=== PATIENT | male | born 1990 | race African-American/Black ===

== ENCOUNTER 2020-11-27 14:04 | Emergency (ER) | payer SELFPAY ==
[2020-11-27 14:08] VITALS: BP 148/90; PULSE 116; RESP 18; TEMP 36.7; O2SAT 98; BMI 21.9
--- NOTE | 2020-11-27 14:20 | W.ED.PSYCH ---
HPI - Psych General: Chief Complaint: Psychiatric Symptoms Stated Complaint: PSYCH EVAL Time Seen by Provider: 11/27/20 14:04 History of Present Illness: HPI Narrative: 30-year-old male presents to the emergency room in the custody of the [facility]. They had served 96-hour hold warrant on him. Affidavits were reviewed. Patient is very talkative he talks a lot about restorationism perspectives. He feels he has special special enlightenment from God. He went on to talk about it was difficult to get his girlfriend understand because she is left-handed left-handed people do not learn new things well. He denies a suicidal or homicidal ideation he makes no threats against anyone. There are allegations in his 96-hour hold that he believes white people are from the devil and are mixed with aliens and swine. He believes he must burn down the world because he is God he believes he is a mortal because he is God cannot be killed or harmed. He has paranoid delusions according to the affidavit about his own being hacked by the government because he is important. He does not voice any of these things to me. He denies any previous mental health issues he denies any prescription medications or major medical history in the past. He does make the comment that his mother was bipolar. He does admit to regular marijuana use. Onset (ago): day(s) Duration: constant Relieving factors: none Exacerbating factors: none Context: recent drug abuse Associated symptoms: Reports delusions and racing thoughts; Deny auditory hallucinations, visual hallucinations, depression, homicidal ideation or suicidal ideation Treatments prior to arrival: placed on mental health hold Review of Systems Const: Denies: fever(s), chills, body aches, change in appetite, fatigue or malaise ENMT: Denies: throat pain, ear or mastoid pain, nasal discharge or nasal congestion Card: Denies: chest pain, edema, dyspnea on exertion or orthopnea Resp: Denies: dyspnea, productive cough or non-productive cough GI: Denies: abdominal pain, nausea, vomiting, hematemesis, coffee ground emesis, diarrhea, constipation, bloating, hematochezia or melena : Denies: flank pain, dysuria, urinary frequency or urinary urgency Skin/Breast: Denies: rash or pruritus Psych: Denies: depression, visual hallucinations, auditory hallucinations, suicidal ideation or homicidal ideation Physical Exam Const: COMMON NORMALS: no acute distress GENERAL APPEARANCE: cooperative and comfortable ORIENTATION/CONSCIOUSNESS: Yes oriented to person, Yes oriented to place and Yes oriented to time HENMT: COMMON NORMALS: normocephalic, atraumatic and hearing grossly normal bilaterally HEAD & SCALP: normocephalic and atraumatic Neck/C-Spine: COMMON NORMALS: no JVD Resp: COMMON NORMALS: normal respiratory effort, No retractions, No use of accessory muscles and clear to auscultation bilaterally AUSCULTATION: clear to auscultation bilaterally Cardio: COMMON NORMALS: no JVD, regular rate, regular rhythm and No murmurs present (Cardio) RATE: regular rate RHYTHM: regular rhythm GI: COMMON NORMALS: Soft to palpation and No hepatosplenomegaly present AUSCULTATION: Yes normoactive bowel sounds PALPATION: Yes Soft to palpation, No Tenderness to palpation present (GI), No Guarding due to palpation present (GI) and Yes No hepatosplenomegaly present Extremity: COMMON NORMALS: normal to inspection, capillary refill normal, no clubbing, cyanosis or edema, no calf tenderness and no pedal edema Neuro: SENSORIUM/ORIENTATION: Yes oriented to person, Yes oriented to place and Yes oriented to time Psych: THOUGHT CONTENT: Yes delusions Skin: COMMON NORMALS: no rashes or lesions noted GENERAL SKIN EXAM: no rashes or lesions noted MDM - Psych MDM Narrative: Medical decision making narrative: Dr. Morrison consulted. Dr. Morrison is seen the patient and does not feel that he necessarily needs to be admitted for acute psychiatric care. He would benefit from outpatient therapy and even some potential prescription medications but he is not an immediate harm to himself or someone else. We both agree he can be discharged and does not require a forced inpatient psychiatric stay. I discussed this with the patient he is agreeable to going to outpatient to [facility] in fact he would like to do it. Will have truck rental clerk make arrangements for him. Discharge Plan Discharge Patient Disposition: Home Clinical Impression: Hypomania, Partner relational problem Condition: Stable Prescriptions: No Action No Known Home Medications RF: 0 Discharge Orders: Discharge ED (Routine); Ordered 11/27/20 Ordered By: Gerson Briceno Discharge Diet: Usual diet Patient Instructions: Opioid Safety Activity Restrictions/Additional Instructions: Case manabement with an aapointment with C. Coding Level of Care Code ED Concrete Mixer Operator Helper for Kayley Fwelvin Exam Comprehensive
[2020-11-27 16:12] VITALS: RESP 18; TEMP 36.7; O2SAT 98
--- NOTE | 2020-11-28 08:59 | DCPLANNER ---
campaign marketing manager had message to speak with patient about services offered at [facility]. campaign marketing manager called [phone], unable to speak with patient or leave a voicemail for patient due to phone no longer being in service. campaign marketing manager also called phone number [phone] unable to speak with anyone or leave a voicemail on this phone.
== END 2020-11-27 16:13 | disposition home or self-care (01) ==
PROVIDERS: Emergency Provider Family Medicine
DX: F30.8 Other manic episodes (principal); Z63.0 Problems in relationship with spouse or partner
CPT/HCPCS: 99284

== ENCOUNTER 2020-12-10 17:05 | Inpatient (IN) | payer SELFPAY ==
[2020-12-10 17:06] VITALS: BP 137/81; PULSE 89; RESP 18; TEMP 36.8; O2SAT 99; BMI 23.1
[2020-12-10 17:33] LABS: Basophils # 0.1 10^3/uL (0.0-0.1); Basophils % 0.6 %; Eosinophils # 0.1 10^3/uL (0.0-0.8); Eosinophils % 1.1 %; Hematocrit 42.2 % (42.0-52.0); Lymphocytes # 2.8 10^3/uL (0.8-4.8); Lymphocytes % 33.2 %; Mean Corpuscular HGB Conc 33.2 g/dL (30.0-36.0); Mean Corpuscular Hemoglobin 29.6 pg (28.0-34.0); Mean Corpuscular Volume 89.2 fL (80-94); Mean Platelet Volume 10.4 fL (7.4-10.4); Monocytes # 0.9 10^3/uL (0.2-0.9); Monocytes % 11.2 %; Neutrophils # 4.48 10^3/uL (1.8-7.7); Neutrophils % 53.8 %; Nucleated Red Blood Cells % 0 %; Platelet Count 209 10^3/cmm (130-400); Red Blood Count 4.73 10^6/uL (4.1-5.3); Red Cell Distribution Width 11.9 % (12.1-15.1); White Blood Count 8.3 10^3/uL (4.0-10.0)
[2020-12-10 17:51] LABS: Alanine Aminotransferase 20 U/L (0-41); Albumin Level 4.5 g/dL (3.5-5.2); Alkaline Phosphatase 59 IU/L (40-130); Anion Gap 13.1 (5-19); Aspartate Amino Transferase 19 U/L (0-40); Blood Urea Nitrogen 24 mg/dL (6-20); Calcium 9.1 mg/dL (8.5-10.5); Carbon Dioxide 28 mmol/L (22-29); Chloride 103 mmol/L (98-107); Globulin 2.3 g/dL (1.3-4.6); Glomerular Filtration Rate 106.2 mL/min (90-130); Glucose 89 mg/dL (65-115); Osmolality Calculated 294 mOsm/kg (285-295); Potassium 4.1 mmol/L (3.5-5.1); Sodium 140 mmol/L (136-145); Total Bilirubin 0.3 mg/dL (0.15-1.2); Total Protein 6.8 g/dL (6.6-8.7)
[2020-12-10 17:57] LABS: Acetaminophen < 5.0 ug/mL (10-30); Salicylate < 0.3 mg/dL (3-10)
--- NOTE | 2020-12-10 18:05 | W.ED.ANXIETY ---
HPI - Anxiety General: Chief Complaint: Anxiety Stated Complaint: PSYCH EVAL Time Seen by Provider: 12/10/20 17:12 History of Present Illness: Associated symptoms: Reports chest pain and malaise; Deny chills, fever(s), headache(s), nausea or vomiting Review of Systems Const: Reports: malaise; Denies: fever(s) or chills Card: Reports: chest pain Resp: Reports: dyspnea GI: Denies: abdominal pain, nausea or vomiting : Denies: flank pain Skin/Breast: Denies: rash Neuro: Denies: headache(s) PFSH ED PFSH: Family History Mother Schizo-affective schizophrenia, chronic condition Bipolar 1 disorder with moderate newton Social History Smoking and tobacco status: current every day smoker cigarettes Packs smoked per day: 1 Substance/Drug Use: current Substance/Drug use frequency: daily Substance/Drug use type: Marijuana Desire information about substance/drug rehabilitation?: No Counseling given: Yes Adopted: No Caregiver/support person: No Lives independently: Yes Marital status: Single Number of children: 3 (2 boys/1girl) Highest education level completed: High School Graduate service: No Current occupational status: unemployed Pets and animals: No History of recent travel: No Sexually active: Yes Current gender identity: Male Juana/Pentecostalism: Unknown Special juana needs: No Agree to transfusion: Yes Financial difficulty paying for basics: Very Hard Additional social history: 2 Penitentiary stays, out in 2013, just got out a second time. Physical Exam Const: COMMON NORMALS: no acute distress and alert GENERAL APPEARANCE: comfortable ORIENTATION/CONSCIOUSNESS: Yes oriented to person Resp: COMMON NORMALS: normal respiratory effort and clear to auscultation bilaterally AUSCULTATION: clear to auscultation bilaterally Cardio: COMMON NORMALS: regular rate and regular rhythm RATE: regular rate RHYTHM: regular rhythm GI: COMMON NORMALS: Soft to palpation and non-tender PALPATION: Yes Soft to palpation Extremity: COMMON NORMALS: normal to inspection and full ROM Neuro: SENSORIUM/ORIENTATION: Yes alert and Yes oriented to person Psych: COMMON NORMALS: mental status grossly normal and normal affect Skin: COMMON NORMALS: no rashes or lesions noted GENERAL SKIN EXAM: no rashes or lesions noted Course Vital Signs: Vital signs: Vital Signs Temperature 97.9 F 12/11/20 06:00 Pulse Rate 64 12/11/20 06:00 Respiratory Rate 18 12/11/20 06:00 Blood Pressure 139/70 12/11/20 06:00 Pulse Oximetry 100 12/11/20 06:00 MDM - Anxiety MDM Narrative: Medical decision making narrative: Patient was evaluated by Dr. Morrison on telemedicine. He felt that patient need to be admitted due to his manic state. Patient to be admitted to [facility] in stable condition. Medical Records: Attestation: I reviewed the patient's medical records. Lab Data: Labs: Lab Results 12/10/20 12/10/20 12/10/20 Range/Units 17:19 17:19 17:27 WBC 8.3 (4.0-10.0) 10^3/ uL RBC 4.73 (4.1-5.3) 10^6/u L Hgb 14.0 (11.7-16.6) g/dL Hct 42.2 (42.0-52.0) % MCV 89.2 (80-94) fL MCH 29.6 (28.0-34.0) pg MCHC 33.2 (30.0-36.0) g/dL RDW 11.9 L (12.1-15.1) % Plt Count 209 (130-400) 10^3/c mm MPV 10.4 (7.4-10.4) fL Neut % (Auto) 53.8 % Lymph % (Auto) 33.2 % [place] % (Auto) 11.2 % Eos % (Auto) 1.1 % Baso % (Auto) 0.6 % Neut # (Auto) 4.48 (1.8-7.7) 10^3/u L Lymph # (Auto) 2.8 (0.8-4.8) 10^3/u L [place] # (Auto) 0.9 (0.2-0.9) 10^3/u L Eos # (Auto) 0.1 (0.0-0.8) 10^3/u L Baso # (Auto) 0.1 (0.0-0.1) 10^3/u L Nucleated RBC % (a uto) 0 % Nucleated RBCs # 0.0 /100WBC Sodium 140 (136-145) mmol/L Potassium 4.1 (3.5-5.1) mmol/L Chloride 103 (98-107) mmol/L Carbon Dioxide 28 (22-29) mmol/L Anion Gap 13.1 (5-19) BUN 24 H (6-20) mg/dL Creatinine 1.0 (0.7-1.2) mg/dL GFR Calculation 106.2 (90-130) mL/min Glucose 89 (65-115) mg/dL Calculated Osmolal ity 294 (285-295) mOsm/k g Calcium 9.1 (8.5-10.5) mg/dL Total Bilirubin 0.3 (0.15-1.2) mg/dL AST 19 (0-40) U/L ALT 20 (0-41) U/L Alkaline Phosphata se 59 (40-130) IU/L Total Protein 6.8 (6.6-8.7) g/dL Albumin 4.5 (3.5-5.2) g/dL Globulin 2.3 (1.3-4.6) g/dL Urine Color Yellow (Yellow) Urine Appearance Clear (CLEAR) Urine pH 6.5 (5-7) Ur Specific Gravit y 1.020 (1.005-1.030) Urine Protein Neg (Negative) Urine Glucose (UA) Norm (Normal) Urine Ketones Negative (Negative) Urine Blood Neg (Negative) Urine Nitrate Negative (Negative) Urine Bilirubin 1+ H (Negative) Urine Urobilinogen Norm (Negative) mg/dL Ur Leukocyte Tati ase Negative (Negative) Salicylates < 0.3 L (3-10) mg/dL Urine Opiates Scre en (Negative) ng/mL Acetaminophen < 5.0 L (10-30) ug/mL Ur Barbiturates Sc reen (Negative) ng/mL Ur Phencyclidine S crn (Negative) ng/mL Ur Amphetamines Sc reen (Negative) ng/mL U Benzodiazepines Scrn (Negative) ng/mL Urine Cocaine Scre en (Negative) ng/mL U Marijuana (THC) Screen (Negative) ng/mL 12/10/20 Range/Units 17:27 WBC (4.0-10.0) 10^3/ uL RBC (4.1-5.3) 10^6/u L Hgb (11.7-16.6) g/dL Hct (42.0-52.0) % MCV (80-94) fL MCH (28.0-34.0) pg MCHC (30.0-36.0) g/dL RDW (12.1-15.1) % Plt Count (130-400) 10^3/c mm MPV (7.4-10.4) fL Neut % (Auto) % Lymph % (Auto) % [place] % (Auto) % Eos % (Auto) % Baso % (Auto) % Neut # (Auto) (1.8-7.7) 10^3/u L Lymph # (Auto) (0.8-4.8) 10^3/u L [place] # (Auto) (0.2-0.9) 10^3/u L Eos # (Auto) (0.0-0.8) 10^3/u L Baso # (Auto) (0.0-0.1) 10^3/u L Nucleated RBC % (a uto) % Nucleated RBCs # /100WBC Sodium (136-145) mmol/L Potassium (3.5-5.1) mmol/L Chloride (98-107) mmol/L Carbon Dioxide (22-29) mmol/L Anion Gap (5-19) BUN (6-20) mg/dL Creatinine (0.7-1.2) mg/dL GFR Calculation (90-130) mL/min Glucose (65-115) mg/dL Calculated Osmolal ity (285-295) mOsm/k g Calcium (8.5-10.5) mg/dL Total Bilirubin (0.15-1.2) mg/dL AST (0-40) U/L ALT (0-41) U/L Alkaline Phosphata se (40-130) IU/L Total Protein (6.6-8.7) g/dL Albumin (3.5-5.2) g/dL Globulin (1.3-4.6) g/dL Urine Color (Yellow) Urine Appearance (CLEAR) Urine pH (5-7) Ur Specific Gravit y (1.005-1.030) Urine Protein (Negative) Urine Glucose (UA) (Normal) Urine Ketones (Negative) Urine Blood (Negative) Urine Nitrate (Negative) Urine Bilirubin (Negative) Urine Urobilinogen (Negative) mg/dL Ur Leukocyte Tati ase (Negative) Salicylates (3-10) mg/dL Urine Opiates Scre en Negative (Negative) ng/mL Acetaminophen (10-30) ug/mL Ur Barbiturates Sc reen Negative (Negative) ng/mL Ur Phencyclidine S crn Negative (Negative) ng/mL Ur Amphetamines Sc reen Negative (Negative) ng/mL U Benzodiazepines Scrn Negative (Negative) ng/mL Urine Cocaine Scre en Negative (Negative) ng/mL U Marijuana (THC) Screen Positive H (Negative) ng/mL Discharge Plan Discharge Patient Disposition: Admitted As Inpatient Admit Provider: No Marlow Clinical Impression: Manic behavior Condition: Stable Discharge Diet: Usual diet Coding Level of Care Code ED Rehabilitation Nurse for Kayley Dent Exam Detailed
[2020-12-10 18:12] LABS: Add Urine Microscopic? NO; Charge for UA Resulting for Rev
[2020-12-10 18:17] LABS: Urine Appearance Clear (CLEAR); Urine Color Yellow (Yellow); pH Urine 6.5 (5-7)
[2020-12-10 18:18] LABS: Bilirubin Urine 1+ (Negative); Blood Urine Neg (Negative); Glucose Urine UA Norm (Normal); Ketones Urine Negative (Negative); Leukocyte Esterase Urine Negative (Negative); Nitrate Urine Negative (Negative); Protein Urine Neg (Negative); Urobilinogen Urine Norm (Negative)
[2020-12-10 18:27] LABS: Amphetamines Screen Urine Negative (Negative); Barbiturates Screen Urine Negative (Negative); Benzodiazepines Screen Urine Negative (Negative); Cocaine Screen Urine Negative (Negative); Opiate Screen Urine Negative (Negative); PCP Screen Urine Negative (Negative); THC Screen Urine Positive (Negative)
[2020-12-10] MEDS: OLANZapine 5 mg TABLET PO (22:57)
[2020-12-10 23:14] VITALS: BP 115/72; PULSE 78; RESP 19; TEMP 36.9; O2SAT 98
[2020-12-10 23:29] VITALS: BP 132/80; PULSE 86; RESP 19; TEMP 36.9; O2SAT 100
[2020-12-10 23:30] VITALS: BP 132/80; PULSE 86; RESP 19; O2SAT 100
[2020-12-11 00:35] VITALS: BP 132/80; PULSE 86; RESP 19; TEMP 36.9; O2SAT 100
--- NOTE | 2020-12-11 01:00 | PC.NURSE ---
PM ASSESSMENT V/S ARE WNL, HEART AND LUNG SOUNDS ARE WNL, ON ADMISSION TO NPU PT IS CALM, COOPERATIVE, AND SINGING TO THE MANAGER OF SCHOOL. PT DENIES SI/HI AT THIS TIME, DENIES PAIN, DENIES AH/VH. PT ADMITTED FROM ER WITH DX: MANIC BEHAVIOR, HERE ON A 96. PT WAS IN COURT TODAY (12/11/19), PT FOUND IN JUDGES CHAIR, NAKED, FEET UP ON THE DESK, MASTURBATING. HE IS EXPERIENCING GRANDIOSE DELUSIONS, BELIEVES HE IS A PROFIT FROM GOD, WHEN HE WAS ASKED TO COME DOWN AND GET DRESSED, THE PT BECAME SUICIDAL WITH A PLAN TO BY FEED MILL SUPERVISOR. PLACED IN POLICE CUSTODY FOR CONTEMPT OF COURT. HX: LAST IN NPU, UNDER DR. SINAI HOYOS CARE IN 07/2019, 96?D FOR HI, DX OF MAJOR DEPRESSIVE DISORDER, SPOUSAL ISSUES, MANIC. PT WAS USING STIMULANTS AND THC AT THAT TIME.PT REPORTS BEING IN HALFWAY TWICE, DID NOT EXPOUND ON CIRCUMSTANCES. SOCIAL HX: PT IS THE FATHER OF 2 BOYS AND ONE GIRL, THERE IS ISSUES WITHIN THE FAMILY DYNAMICS REGARDING HIS VISITATION. PT STATES ?I DO NOT HAVE ANYONE THAT I COUNT PART OF MY SUPPORT SYSTEM.? REPORTS HIS MOTHER IS SCHIZOPHRENIC/BIPOLAR.
[2020-12-11 06:00] VITALS: BP 139/70; PULSE 64; RESP 18; TEMP 36.6; O2SAT 100
[2020-12-11] MEDS: OLANZapine 5 mg ODT PO ×2 (10:31→21:24)
--- NOTE | 2020-12-11 10:31 | PM.NHP ---
Providers/Chief Complaint Admitting Physician: No Marlow DO Chief Complaint: PSYCH EVAL HPI NPU History of Present Illness Tad Varela JR is a 30 year old male with an unclear and confusing past mental health history and extensive legal history presented to the emergency department by law enforcement on 96-hour hold. Patient appeared to initially be appropriate upon presentation to the emergency room but had evidently been acting erratic and bizarrely while in court yesterday and had apparently stripped down and was not wearing any clothes while sitting in the judges chair. Patient had previously been evaluated in the emergency department 2 weeks prior and was hypomanic and was discharged with recommendation for outpatient care. Patient evaluated by telepsych and deemed to be much more manic with concerns about bizarre behavior and need for ongoing care acutely to include medication stabilization. Patient currently endorsing grandiose delusions with scientology theme, states that he is also hearing voices but is not able to make them out and is upset by them. Patient is difficult interview because he becomes labile with regards to mood and affect and begins to cry during interview and is unable to complete the interview. Patient does mention that he had been smoking marijuana and that he has not been taking medication for several weeks and that he had previously been in rehab 2 months prior. He currently denies any suicidal ideation or thoughts about self-harm. Review of Systems General: Reports: 10 or more systems reviewed and unremarkable except in HPI and below Meds NPU Home Medications Medication Instructions Recorded Confirmed Last Taken Type No Known Home Medications 11/27/20 12/10/20 Unknown History Allergies Allergy/AdvReac Type Severity Reaction Status Date / Time No Known Allergies Allergy Verified 12/10/20 23:36 PFSH NPU PFSH: Family History Mother Schizo-affective schizophrenia, chronic condition Bipolar 1 disorder with moderate newton Social History Smoking and tobacco status: current every day smoker cigarettes Packs smoked per day: 1 Substance/Drug Use: current Substance/Drug use frequency: daily Substance/Drug use type: Marijuana Desire information about substance/drug rehabilitation?: No Counseling given: Yes Adopted: No Caregiver/support person: No Lives independently: Yes Marital status: Single Number of children: 3 (2 boys/1girl) Highest education level completed: High School Graduate service: No Current occupational status: unemployed Pets and animals: No History of recent travel: No Sexually active: Yes Current gender identity: Male Juana/Protestant: Unknown Special juana needs: No Agree to transfusion: Yes Financial difficulty paying for basics: Very Hard Additional social history: 2 Senior Living stays, out in 2013, just got out a second time. Other Psychiatric History: Other Psychiatric History: Unable to obtain at this time, states that he has seen a mental health provider in the past outside of the hospital but it is unclear if he had been managed with medications or not States he has been previously hospitalized for psychiatric reasons but does not recall last encounter Denies any history of suicide attempt or self-harm behavior Mental Status Exam MSE Comments: Appears stated age, long dreaded hair, appropriately groomed and dressed, calm, cooperative, interactive, good eye contact Psychomotor activity is neither increased nor decreased, no agitation Speech is slightly pressured, normal volume, spontaneous, fair articulation I am okay, just anxious, somewhat labile, tearful during interview Alert and oriented to person, place, time Memory and concentration are fair at best per interview Intellectual functioning appears to be average based on vocabulary, interview Thought process, somewhat disjointed, linear at times but easily distractible requiring redirection Thought content, scientology themed delusions and grandiose, does not appear to be attending to any internal stimuli, no suicidal or homicidal ideation Insight and judgment appear to be fair Vitals/I&O/Wt Last Vital Signs Temp 97.9 F 12/11/20 06:00 Pulse 64 12/11/20 06:00 Resp 18 12/11/20 06:00 BP 139/70 12/11/20 06:00 Pulse Ox 100 12/11/20 06:00 Weight last 48 hrs Weight 95.254 kg Data NPU : 12/10/20 17:19 12/10/20 17:19 A&P Assessment and plan (1) Manic behavior: Status: Acute (2) Cannabis abuse: Status: Acute Additional A&P Information Patient with unclear past psychiatric history recently presenting to the emergency department with hypomanic behavior and currently manic reporting auditory hallucinations, grandiose and scientology theme delusions with ongoing legal issues and ongoing cannabis use off of medication. Patient would benefit from observation, restarting medication for medication stabilization and coordination for safe discharge to outpatient medication management and substance counseling/treatment. INVOLUNTARY ADMIT to inpatient psychiatry START Zyprexa Zydis 5 mg twice daily targeting psychotic symptoms, mood Encouraged patient to participate in unit activities to include group sessions, unit milieu Coordinate with social scientist for post discharge care Involuntary Hold Information 96 Hour Hold: 96 Hour Involuntary Admission: Yes 96 Hour Hold Ending Date: 12/14/20 96 Hour Hold Ending Time: 17:05 Attestations NPU Medical Necessity Statement*: Requires psychiatric hospitalization for observation, medication stabilization and coordination for safe discharge Anticipate hospital stay to exceed 2 midnights Time Spent in Patient Care: Greater than 35 minutes (>than 50% of time spent in counselling and/or direct pt care on unit). Coding Level of Care Code Acute Emergency Preparedness Coordinator for Kayley Dent Diagnoses Manic behavior F30.10 Cannabis abuse F12.10
[2020-12-11 14:00] VITALS: BP 104/65; PULSE 72; RESP 18; TEMP 36.2; O2SAT 96
[2020-12-11] MEDS: nicotine 2 mg Gum BUCCAL (18:51)
[2020-12-11 22:00] VITALS: BP 114/64; PULSE 58; RESP 18; TEMP 37.1; O2SAT 98
[2020-12-12 06:00] VITALS: BP 131/74; PULSE 101; RESP 18; TEMP 36.8; O2SAT 98
[2020-12-12] MEDS: nicotine 21 mg Patch 1 PATCH TRANSDERMA (07:06)
[2020-12-12] MEDS: OLANZapine 5 mg ODT PO ×2 (08:56→11:22)
--- NOTE | 2020-12-12 10:00 | PC.NURSE ---
Patient education Earlier this morning patient was noted standing in doorway of a female patient room. Educated patient that this is inappropriate and that he needed to respect privacy, and stay out of other patient rooms. This patient apologized and verbalized understanding.
--- NOTE | 2020-12-12 11:01 | PC.NURSE ---
Pt in other room This nurse was going to same female patient room and noticed the door was closed, immediately opened patient door and this patient was standing in said female patient's room. Both patients fully clothed, this nurse firmly tells male patient to exit and again that this is inappropriate behavior. Patient states I just need to get out of here so I can make some love . Repeated to patient that this is unacceptable and to go to his own room.
[2020-12-12] MEDS: OLANZapine 5 mg ODT 10 MG PO ×2 (11:23→19:33)
--- NOTE | 2020-12-12 11:51 | P.PN_ITS ---
Subjective NPU Subjective: Interval history: Patient with worsening delusions over the past day, states that he thinks he was made in [place], in a test tube. Continues to have episcopal themed delusions and has been escalating making physical threats towards others requiring as needed medication. Denies any interval depressed symptoms, denies any suicidal ideation States that he slept well last night Reports feeling somewhat restless and full of energy, demanding to leave stating that he just needs to go to his sister's in [place] Reports being compliant with his medication and denies any medication side effects Mental Status Exam MSE Comments: Tall, waving his arms while talking, appropriately groomed and dressed, mostly calm but occasionally gets emotional, good eye contact Psychomotor activity, occasionally restless, occasional verbal agitation but no physical agitation Speech is somewhat faster than normal rate but not pressured, spontaneous, clear articulation I feel great, expansive, elevated Alert and oriented to person, place, time Memory and concentration are fair at best, patient is highly distractible Thought process, circumstantial, frequently requires redirection, loose associations Thought content, ongoing delusions, does not appear to be attending to any internal stimuli, no suicidal ideation, patient had made threats towards this interviewer but was not voicing any current intent or plan Insight and judgment are limited Vitals/I&O/Wt Last Vital Signs Temp 98.2 F 12/12/20 06:00 Pulse 101 H 12/12/20 06:00 Resp 18 12/12/20 06:00 BP 131/74 12/12/20 06:00 Pulse Ox 98 12/12/20 06:00 Weight last 48 hrs Weight 95.254 kg Data NPU : 12/10/20 17:19 12/10/20 17:19 A&P Assessment and plan (1) Manic behavior: Status: Acute (2) Cannabis abuse: Status: Acute Additional A&P Information Ongoing manic behavior, episcopal delusions, verbal agitation, occasionally making threats with no active intent or plan INCREASE to Zyprexa Zydis 10 mg twice daily Continue to encourage behavioral redirection Involuntary Hold Information 96 Hour Hold: 96 Hour Involuntary Admission: Yes 96 Hour Hold Ending Date: 12/14/20 96 Hour Hold Ending Time: 17:05 Attestations NPU Medical Necessity Statement*: Requires psychiatric hospitalization for medication stabilization, coordination for safe discharge Coding Level of Care Code Acute X Ray Developing Machine Operator for Kayley Dent Diagnoses Manic behavior F30.10 Cannabis abuse F12.10
[2020-12-12] MEDS: LORazepam 2 mg/mL INJ 1 mL IM (11:57)
[2020-12-12] MEDS: diphenhydrAMINE 50 mg/mL SDV 1mL IM (11:58)
[2020-12-12] MEDS: haloperidol inj 5 mg/mL INJ 1 mL 10 MG IM (11:59)
--- NOTE | 2020-12-12 12:06 | PC.NURSE ---
PRN Medications Patient on phone requesting family to bring in all of their guns for him, requesting nurse staff to get him paperwork so he could no longer be a [place] Citizen, and we could send him to [place]. Patient making verbal threats to staff saying he would take us all out . Patient is very hyper-spiritism and states he cannot trust any staff members. He tells staff he has God in him and is very strong, and that he has gotten violent before and will do it again. Per Dr. Marlow, Haldol 10mg IM, Ativan 2mg IM, and Benadryl 50mg IM given. Patient was cooperative and sat on bed for medications to be given.
[2020-12-12 14:00] VITALS: BP 106/69; PULSE 109; RESP 18; TEMP 36.8; O2SAT 99
[2020-12-12 20:10] VITALS: BP 122/69; PULSE 103; RESP 17; TEMP 36.8; O2SAT 98
[2020-12-13 06:00] VITALS: BP 124/82; PULSE 73; RESP 18; TEMP 37.3; O2SAT 100
[2020-12-13] MEDS: OLANZapine 5 mg ODT PO (08:20)
[2020-12-13] MEDS: OLANZapine 5 mg ODT 10 MG PO ×2 (08:33→20:00)
[2020-12-13 14:00] VITALS: BP 138/73; PULSE 109; RESP 20; TEMP 37.4; O2SAT 99
--- NOTE | 2020-12-13 16:03 | P.PN_ITS ---
Subjective NPU Subjective: Interval history: Tad presented today reporting that he feels significantly better and like the medication helps him stay more calm. We discussed the fact that he seemed very manic when he was seen last by this video game script writer and of the medication clearly seems to help him though he did still make some delusional or conspiratory statements. We discussed the possibility of discharge tomorrow prior to the ending of his 96-hour hold if he continues to show improvement. He reports that is eating and sleeping well. Mental Status Exam MSE Comments: This is a tall, well-nourished well-developed -Malaysian male with hospital scrubs on and adequate grooming and eye contact. No abnormal movements. Cooperative with exam in no acute distress. Speech was normal rate and volume. Mood described as a lot better, affect congruent. Thought process organized. Thought content: Patient denied suicidal or homicidal ideation, there are no delusions reported with some occasional delusional content noted, he denied any auditory or visual hallucinations. Attention and concentration were intact and memory appeared reliable but none were formally tested. He is alert and oriented x3. Insight and judgment are improving and impulse control appeared fair. Vitals/I&O/Wt Last Vital Signs Temp 98.1 F 12/13/20 21:23 Pulse 76 12/13/20 21:23 Resp 18 12/13/20 21:23 BP 162/79 12/13/20 21:23 Pulse Ox 98 12/13/20 21:23 Data NPU : 12/10/20 17:19 12/10/20 17:19 A&P Assessment and plan (1) Moderate bipolar I disorder with newton as current episode: Status: Acute (2) Cannabis abuse: Status: Acute Additional A&P Information This is a 30-year-old -Malaysian male with a history of addiction and mental health difficulties who presented to the hospital on a 96-hour hold with newton who endorsed an openness to a trial of medication. 1. Continue current medication. 2. Continue every 15 minute checks for safety. 3. Encourage individual, group and milieu therapies. 4. We will consider discharge tomorrow. Involuntary Hold Information 96 Hour Hold: 96 Hour Involuntary Admission: Yes 96 Hour Hold Ending Date: 12/14/20 96 Hour Hold Ending Time: 17:05 Attestations NPU Medical Necessity Statement*: Inpatient hospitalization is medically necessary and the clinically appropriate intervention at this time. We will monitor medications and make changes as indicated. Likely length of stay 1-3 days. Coding Level of Care Code Acute Seed Tester for g Fwd Diagnoses Moderate bipolar I disorder with newton as current episode F31.12 Cannabis abuse F12.10
[2020-12-13 21:23] VITALS: BP 162/79; PULSE 76; RESP 18; TEMP 36.7; O2SAT 98
[2020-12-14 06:00] VITALS: BP 120/71; PULSE 88; RESP 18; TEMP 36.8; O2SAT 100
[2020-12-14] MEDS: nicotine 2 mg Gum BUCCAL ×2 (06:28→09:03)
[2020-12-14] MEDS: OLANZapine 5 mg ODT 10 MG PO (08:35)
[2020-12-14 11:05] VITALS: BP 120/71; PULSE 88; RESP 18; TEMP 36.8; O2SAT 100
[2020-12-14 14:00] VITALS: BP 147/77; PULSE 70; RESP 16; TEMP 37.4; O2SAT 97
--- NOTE | 2020-12-14 14:08 | P.DS_ITS ---
Diagnoses at Discharge Discharge Diagnosis (1) Moderate bipolar I disorder with newton as current episode: Status: Acute (2) Cannabis abuse: Status: Acute Reason for Visit Reason for Visit: PSYCH EVAL Brief History: History of Present Illness Tad Varela JR is a 30 year old male with an unclear and confusing past mental health history and extensive legal history presented to the emergency department by law enforcement on 96-hour hold. Patient appeared to initially be appropriate upon presentation to the emergency room but had evidently been a cting erratic and bizarrely while in court yesterday and had apparently stripped down and was not wearing any clothes while sitting in the judges chair. Patient had previously been evaluated in the emergency department 2 weeks prior and was hypomanic and was discharged with recommendation for outpatient care. Patient evaluated by telepsych and deemed to be much more manic with concerns about bizarre behavior and need for ongoing care acutely to include medication stabilization. Patient currently endorsing grandiose delusions with congregation theme, states that he is also hearing voices but is not able to make them out and is upset by them. Patient is difficult interview because he becomes labile with regards to mood and affect and begins to cry during interview and is unable to complete the interview. Patient does mention that he had been smoking marijuana and that he has not been taking medication for several weeks and that he had previously been in rehab 2 months prior. He currently denies any suicidal ideation or thoughts about self-harm. Hospital Course Hospital Course Tad presented to the emergency department with symptoms of newton on a 96- hour hold with concerns for need for treatment with a second presentation in a couple weeks. He was admitted to the neuropsychiatric unit for definitive treatment of those issues. On the unit he was started on Zyprexa and showed modest improvement throughout his stay. He is able to contract for safety prior to discharge. During the hospitalization, patient had routine laboratory studies which were within normal limits except for few outliers. Additionally there was a general medical evaluation which was also within normal limits and revealed no new acute processes. Discharge Summary: At the time of discharge, lethality was denied and psychosis was resolving with continued improvement in his manic symptoms. Mood and anxiety were well managed. Patient endorsed a plan to avoid all drugs of abuse and follow-up with the aftercare recommendations of the treatment team. Patient was evaluated and deemed to be absent credible lethality, and had achieved the maximum benefit from an inpatient hospitalization, so was discharged. Involuntary Hold Information 96 Hour Hold: 96 Hour Involuntary Admission: Yes 96 Hour Hold Ending Date: 12/14/20 96 Hour Hold Ending Time: 17:05 Mental Status Exam MSE Comments: This is a tall, well-nourished well-developed -[place] male with hospital scrubs on and adequate grooming and eye contact. No abnormal movements. Cooperative with exam in no acute distress. Speech was normal rate and volume. Mood described as a lot better, affect congruent. Thought process organized. Thought content: Patient denied suicidal or homicidal ideation, there are no delusions reported with some occasional delusional content noted, he denied any auditory or visual hallucinations. Attention and concentration were intact and memory appeared reliable but none were formally tested. He is alert and oriented x3. Insight and judgment are improving and impulse control appeared fair. Discharge Data Vitals: Last Vital Signs Temp 98.3 F 12/14/20 11:05 Pulse 88 12/14/20 11:05 Resp 18 12/14/20 11:05 BP 120/71 12/14/20 11:05 Pulse Ox 100 12/14/20 11:05 Discharge Plan Discharge Patient Disposition: Home Condition: Stable Prescriptions: New olanzapine 5 mg Tablet,Disintegrating 10 mg PO Q12H 30 Days Qty: 120 RF: 1 No Action No Known Home Medications RF: 0 Discharge Orders: Discharge Order (Routine); Ordered 12/14/20 Ordered By: Lv Morrison Referrals: [facility] [Outside] Discharge Diet: Usual diet Discharge Activity: Resume usual activity Patient Instructions: Olanzapine (By mouth), Generalized Anxiety Disorder (DC), Opioid Safety Discharge Attestations NPU Time Spent in Discharge Care*: less than 30 min Specific Discharge Activities: Specific discharge activities: educating patient, discussing with manager case/social workers/dc planners, documenting/other paperwork and evaluating patient/reviewing data Coding Level of Care Code Acute Chg FW DC note Diagnoses Moderate bipolar I disorder with newton as current episode F31.12 Cannabis abuse F12.10
--- NOTE | 2020-12-14 15:45 | PC.RESP ---
Smoking Cessation information sent to patient.
== END 2020-12-14 14:47 | disposition home or self-care (01) | DRG 885 ==
LOC: ER 22:47 → NP 23:08
PROVIDERS: Admitting Provider Psychiatry & Neurology Psychiatry; Emergency Provider Student in an Organized Health Care Education/Training Program; Visit Provider Psychiatry & Neurology Psychiatry
DX: F30.12 Manic episode without psychotic symptoms, moderate (principal); F12.10 Cannabis abuse, uncomplicated; Z81.8 Family history of other mental and behavioral disorders; F17.210 Nicotine dependence, cigarettes, uncomplicated
CPT/HCPCS: 80053; 80306; 80307; 81003; 85025; 96372; 99285; J1200; J1630; J2060

== ENCOUNTER 2022-12-14 13:10 | Emergency (ER) | payer SELFPAY ==
[2022-12-14 13:19] VITALS: BP 106/71; PULSE 81; TEMP 36.6; O2SAT 96; BMI 27.4
--- NOTE | 2022-12-14 14:31 | W.ED.DENTAL ---
HPI - Dental/Oral General: Chief complaint: Dental/Oral Stated complaint: tooth pain Time Seen by Provider: 12/14/22 14:03 History of Present Illness: Patient is a 32-year-old male that presents to the emergency department with a dental abscess/dental pain. Patient states he broke his back right molar approximately 4 years ago but in the last 4 days he is developed this pain with swelling in his jaw. Associated symptoms: Denies ear or mastoid pain, fever(s) or odynophagia Review of Systems General: Reports: 10 or more systems reviewed and unremarkable except in HPI and below Const: Denies: fever(s), chills, change in appetite, change in weight, fatigue or malaise Eyes: Denies: change in vision, eye discomfort, eye discharge or eye redness ENMT: Reports: mouth pain, bleeding gums, dental pain and halitosis; Denies: throat pain, enlarged tonsils, odynophagia, hoarseness, ear or mastoid pain, ear discharge, change in hearing, tinnitus, nasal discharge, nasal congestion, post nasal drip or sinus pain Card: Denies: chest pain, palpitations, irregular heart rhythm, edema, dyspnea on exertion, orthopnea or leg pain with exertion Resp: Denies: dyspnea, productive cough, non-productive cough, wheezing, stridor or chest congestion GI: Denies: abdominal pain, nausea, vomiting, dysphagia, diarrhea, constipation, bloating, GI cramping or hematochezia : Denies: flank pain, dysuria, urinary frequency, urinary urgency, urinary hesitancy, oliguria or hematuria Musc: Denies: neck pain, back pain, extremity pain, joint pain, joint swelling, joint redness, joint warmth or muscle weakness Skin/Breast: Denies: rash, pruritus, erythema, photosensitivity or new lesions Neuro: Denies: headache(s), numbness in extremities, weakness in extremities, sensory changes, lack of coordination, difficulty walking, frequent falls, dizziness, confusion, Slurred speech present, difficulty communicating thoughts, seizure-like activity or involuntary movements Endo: Denies: polyuria, polydipsia or tired all the time Toro/Lymph: Denies: easy bruising or easy bleeding PFS ED PFSH: Family History Mother Schizo-affective schizophrenia, chronic condition Bipolar 1 disorder with moderate newton Social History Smoking and tobacco status: current every day smoker cigarettes Packs smoked per day: 1 Substance/Drug Use: current Substance/Drug use frequency: daily Desire information about substance/drug rehabilitation?: No Counseling given: Yes Adopted: No Caregiver/support person: No Lives independently: Yes Marital status: Single Number of children: 3 (2 boys/1girl) Highest education level completed: High School Graduate service: No Current occupational status: unemployed Pets and animals: No Sexually active: Yes Do you think of yourself as: Straight/Heterosexual Current gender identity: Male Juana/Restorationism: Unknown Special juana needs: No Agree to transfusion: Yes Financial difficulty paying for basics: Very Hard Additional social history: 2 [facility] stays, out in 2013, just got out a second time. Physical Exam Const: COMMON NORMALS: no acute distress, patient oriented x3 and alert GENERAL APPEARANCE: cooperative ORIENTATION/CONSCIOUSNESS: Yes awake, Yes oriented to person, Yes oriented to place and Yes oriented to time HENMT: COMMON NORMALS: normocephalic and atraumatic HEAD & SCALP: normocephalic and atraumatic FACE & SINUS: normal facial exam MOUTH: Normal oral and palatal mucosa present TEETH & GINGIVA: Yes abnormal tooth and associated gingiva and Yes caries TEETH & GINGIVA IMAGES: 1. Missing tooth 2. Missing tooth 3. Fractured tooth 4. Nontender to palpation on the floor of the mouth but tender to palpation along the buccal membrane EXTR fracture There is no drainable abscess THROAT: posterior oropharynx normal Eye: COMMON NORMALS: Equal, round and reactive pupils present, EOMs intact bilaterally, conjunctivae normal and no scleral icterus GENERAL EYE: appearance normal, both eyes and all related structures ALIGNMENT: Yes alignment normal PERIORBITAL: periorbital findings normal CONJUNCTIVA: Yes conjunctivae normal PUPIL: Yes Equal, round and reactive pupils present Neck/C-Spine: COMMON NORMALS: full ROM GENERAL: Yes normal visual inspection Lymph: LYMPHATIC: no lymphadenopathy noted Chest: COMMONS NORMALS: normal inspection of the chest Breast/axilla inspection: Yes no chest deformity, asymmetry, normal contours, no nodules, masses, tenderness Resp: COMMON NORMALS: normal respiratory effort, No retractions, No use of accessory muscles and clear to auscultation bilaterally EFFORT & INSPECTION: Yes able to speak in complete sentences and Yes symmetric chest movement AUSCULTATION: clear to auscultation bilaterally Cardio: COMMON NORMALS: regular rate, regular rhythm and Peripheral pulses 2+ throughout RATE: regular rate RHYTHM: regular rhythm PERIPHERAL PULSES: Peripheral pulses 2+ throughout GI: COMMON NORMALS: Normal to inspection, nondistended, normoactive bowel sounds present, Soft to palpation, non-tender and No hepatosplenomegaly present INSPECTION: Yes normal to inspection AUSCULTATION: Yes normoactive bowel sounds PALPATION: Yes Soft to palpation and Yes No hepatosplenomegaly present RECTAL EXAM: Yes deferred Extremity: COMMON NORMALS: normal to inspection GENERAL: Yes normal exam except as noted Neuro: COMMON NORMALS: patient oriented x3 SENSORIUM/ORIENTATION: Yes alert, Yes oriented to person, Yes oriented to place and Yes oriented to time CRANIAL NERVES: Yes CN normal except as noted Psych: COMMON NORMALS: mental status grossly normal, Normal thought process present, cooperative, activity/motor behavior normal, denies homicidal ideation and denies suicidal ideation THOUGHT PROCESS: Normal thought process present Skin: COMMON NORMALS: no rashes or lesions noted, no wounds and turgor normal GENERAL SKIN EXAM: no rashes or lesions noted and turgor normal Course Vital Signs: Vital signs: Vital Signs Temperature 97.8 F 12/14/22 13:19 Pulse Rate 81 12/14/22 13:19 Blood Pressure 106/71 12/14/22 13:19 Pulse Oximetry 96 12/14/22 13:19 Oxygen Delivery Me thod Room Air 12/14/22 13:19 MDM - Dental/Oral Medical Decision Making Differential diagnosis includes dental fracture, dental decay, abscess, gingivitis, necrotizing gingivitis. More concerning Martin's angina, peritonsillar abscess pharyngeal abscess Patient was evaluated in the emergency department. Reports dental pain and has sensation of sore throat and difficulty swallowing. Initially was treating the patient for a dental abscess; however his muffled voice/hoarse voice concerns me and I believe a CT is warranted. Unfortunately, patient has opted to sign out AMA. I did send a prescription for his dental abscess but have urged him to return should he develop worsening symptoms like dyspnea or dysphagia Discharge Plan Discharge Patient Disposition: Left Against Medical Advice Clinical Impression: Dental caries, Toothache, Dental abscess Condition: Stable Prescriptions: New amoxicillin-pot clavulanate 875-125 mg tablet 1 tab PO Q12H Qty: 14 0RF No Action olanzapine 5 mg Tablet,Disintegrating 10 mg PO Q12H 30 Days Qty: 120 1RF Patient Instructions: Dental Abscess (ED) Activity Restrictions/Additional Instructions: Please take your antibiotics as prescribed Please return to the emergency department as needed As discussed I think you would benefit from a CT of your neck. Unfortunately you have opted to sign out AGAINST MEDICAL ADVICE. If you develop any difficulty breathing or worsening symptoms with your swallow please return to the emergency Coding Level of Care Code ED Supervisor Data Processing for Kayley Dent
[2022-12-14] MEDS: amoxicillin-clav 875-125 mg Tablet 1 TAB PO (14:53)
[2022-12-14] MEDS: ketorolac 60 mg/2 mL INJ IM (14:53)
[2022-12-14] MEDS: iohexol 350 mg/mL 500 mL Btl (per mL) IV (15:44)
--- NOTE | 2022-12-19 11:08 | DCPLANNER ---
extrusion manager called patient due to no primary care physician - no answer at this time.
== END 2022-12-14 16:00 | disposition left against medical advice (07) ==
PROVIDERS: Emergency Provider Nurse Practitioner
DX: K02.9 Dental caries, unspecified (principal); K04.7 Periapical abscess without sinus; Z53.21 Procedure and treatment not carried out due to patient leaving prior to being seen by health care provider; F17.210 Nicotine dependence, cigarettes, uncomplicated
CPT/HCPCS: 96372; 99284; J1885; Q9967

== ENCOUNTER → 2022-12-16 10:51 | Outpatient (BNVA) | payer SELFPAY | PROVIDERS: Visit Provider Nurse Practitioner | DX: Z20.2 Contact with and (suspected) exposure to infections with a predominantly sexual mode of transmission (principal) | CPT/HCPCS: 87491; 87591; 87661 ==

== ENCOUNTER 2023-05-12 06:52 | Inpatient (IN) | payer MEDICAID, SELFPAY ==
[2023-05-12 06:54] VITALS: BP 120/73; PULSE 84; RESP 16; TEMP 36.7; O2SAT 98; BMI 26.4
--- NOTE | 2023-05-12 07:00 | W.ED.PSYCHS ---
HPI - Psych General: Chief Complaint: Psychiatric Symptoms Stated Complaint: 96 Time Seen by Provider: 05/12/23 06:53 Source: patient and police Mode of arrival: other (police) Limitations: no limitations History of Present Illness: 32-year-old male who is here with police with hallucinations paranoia he does have a history of bipolar he is telling me that he can jump through time and dimensions like Paulino and Tereza. He is cooperative. He denies being suicidal or homicidal but he is acutely psychotic. Denies any worsening improving factors. Associated symptoms: Reports delusions; Deny depression Review of Systems Const: Denies: fever(s), chills, body aches or change in appetite Eyes: Denies: blurry vision or eye discomfort ENMT: Denies: throat pain or dental pain Card: Denies: chest pain Resp: Denies: dyspnea GI: Denies: abdominal pain, nausea, vomiting or diarrhea Musc: Denies: neck pain or back pain Skin/Breast: Denies: rash Neuro: Denies: headache(s) Psych: Reports: paranoia; Denies: depression PFSH ED PFSH: Family History Mother Schizo-affective schizophrenia, chronic condition Bipolar 1 disorder with moderate newton Social History Smoking and tobacco status: current every day smoker cigarettes Packs smoked per day: 1 Substance/Drug Use: current Substance/Drug use frequency: daily Desire information about substance/drug rehabilitation?: No Counseling given: Yes Adopted: No Caregiver/support person: No Lives independently: Yes Marital status: Single Number of children: 3 (2 boys/1girl) Highest education level completed: High School Graduate service: No Current occupational status: unemployed Pets and animals: No Sexually active: Yes Do you think of yourself as: Straight/Heterosexual Current gender identity: Male Juana/Buddhism: Unknown Special juana needs: No Agree to transfusion: Yes Financial difficulty paying for basics: Very Hard Additional social history: 2 Jail stays, out in 2013, just got out a second time. Physical Exam Const: COMMON NORMALS: no acute distress, patient oriented x3 and healthy appearing HENMT: COMMON NORMALS: normocephalic and atraumatic HEAD & SCALP: normocephalic and atraumatic Neck/C-Spine: COMMON NORMALS: full ROM and supple Chest: COMMONS NORMALS: normal inspection of the chest and normal palpation of entire chest wall Resp: COMMON NORMALS: normal respiratory effort, No retractions, No use of accessory muscles and clear to auscultation bilaterally AUSCULTATION: clear to auscultation bilaterally Cardio: COMMON NORMALS: regular rate, regular rhythm and No murmurs present (Cardio) RATE: regular rate RHYTHM: regular rhythm GI: COMMON NORMALS: Normal to inspection, nondistended, normoactive bowel sounds present, Soft to palpation, non-tender and no masses PALPATION: Yes Soft to palpation Extremity: COMMON NORMALS: normal to inspection and full ROM Neuro: COMMON NORMALS: patient oriented x3, moves all extremities and no focal motor deficits Psych: COMMON NORMALS: mental status grossly normal, Normal thought process present and cooperative THOUGHT PROCESS: Normal thought process present THOUGHT CONTENT: Yes delusions Skin: COMMON NORMALS: no rashes or lesions noted and no wounds GENERAL SKIN EXAM: no rashes or lesions noted Course Vital Signs: Vital signs: Vital Signs Temperature 98.1 F 05/12/23 06:54 Pulse Rate 84 05/12/23 07:06 Respiratory Rate 18 05/12/23 07:06 Blood Pressure 120/73 05/12/23 07:06 Pulse Oximetry 98 05/12/23 07:06 Oxygen Delivery Me thod Room Air 05/12/23 07:06 [facility] - Psych Medical Decision Making Patient presents here with acute psychosis I spoke to psychiatrist will admit at this time. Lab Data 05/12/23 06:58 05/12/23 06:58 Laboratory Results WBC 8.24 10^3/uL (3.29-11.43) 05/12/23 06:58 RBC 4.74 10^6/uL (3.85-5.65) 05/12/23 06:58 Hgb 13.70 g/dL (11.27-16.99) 05/12/23 06:58 Hct 42.8 % (37-53) 05/12/23 06:58 MCV 90.3 fl (82-101) 05/12/23 06:58 MCH 28.9 pg (27-33) 05/12/23 06:58 MCHC 32.0 g/dL (30-55) 05/12/23 06:58 RDW 13.0 % (12.1-15.1) 05/12/23 06:58 Plt Count 217 10^3/cmm (157-399) 05/12/23 06:58 MPV 10.2 fL (7.4-10.4) 05/12/23 06:58 Neut % (Auto) 56.0 % 05/12/23 06:58 Lymph % (Auto) 34.5 % 05/12/23 06:58 [place] % (Auto) 7.4 % 05/12/23 06:58 Eos % (Auto) 1.3 % 05/12/23 06:58 Baso % (Auto) 0.7 % 05/12/23 06:58 Neut # (Auto) 4.61 10^3/uL (1.8-7.7) 05/12/23 06:58 Lymph # (Auto) 2.8 10^3/uL (0.8-4.8) 05/12/23 06:58 [place] # (Auto) 0.6 10^3/uL (0.2-0.9) 05/12/23 06:58 Eos # (Auto) 0.1 10^3/uL (0.0-0.8) 05/12/23 06:58 Baso # (Auto) 0.1 10^3/uL (0.0-0.1) 05/12/23 06:58 Nucleated RBC % (auto) 0 % 05/12/23 06:58 Nucleated RBCs # 0.0 /100WBC 05/12/23 06:58 Sodium 138 mmol/L (136-145) 05/12/23 06:58 Potassium 3.7 mmol/L (3.5-5.1) 05/12/23 06:58 Chloride 100 mmol/L (98-107) 05/12/23 06:58 Carbon Dioxide 28 mmol/L (22-29) 05/12/23 06:58 Anion Gap 13.7 (5-19) 05/12/23 06:58 BUN 26 mg/dL (6-20) H 05/12/23 06:58 Creatinine 1.2 mg/dL (0.7-1.2) 05/12/23 06:58 GFR Calculation 84.9 mL/min (90-130) L 05/12/23 06:58 Glucose 216 mg/dL (65-115) H 05/12/23 06:58 Calculated Osmolality 297 mOsm/kg (285-295) H 05/12/23 06:58 Calcium 9.2 mg/dL (8.5-10.5) 05/12/23 06:58 Total Bilirubin 0.5 mg/dL (0.15-1.2) 05/12/23 06:58 AST 16 U/L (0-40) 05/12/23 06:58 ALT 21 U/L (0-41) 05/12/23 06:58 Alkaline Phosphatase 69 U/L (40-130) 05/12/23 06:58 Total Protein 6.8 g/dL (6.6-8.7) 05/12/23 06:58 Albumin 4.4 g/dL (3.5-5.2) 05/12/23 06:58 Globulin 2.4 g/dL (1.3-4.6) 05/12/23 06:58 Salicylates < 0.3 mg/dL (3-10) L 05/12/23 06:58 Urine Opiates Screen Negative ng/mL (Negative) 05/12/23 07:25 Acetaminophen < 5.0 ug/mL (10-30) L 05/12/23 06:58 Ur Barbiturates Screen Negative ng/mL (Negative) 05/12/23 07:25 Ur Phencyclidine Scrn Negative ng/mL (Negative) 05/12/23 07:25 Ur Amphetamines Screen Negative ng/mL (Negative) 05/12/23 07:25 U Benzodiazepines Scrn Negative ng/mL (Negative) 05/12/23 07:25 Urine Cocaine Screen Negative ng/mL (Negative) 05/12/23 07:25 U Marijuana (THC) Screen Positive ng/mL (Negative) H 05/12/23 07:25 Ethyl Alcohol < 10 mg/dL (0-10) 05/12/23 06:58 No radiology studies performed this visit Discharge Plan Discharge Patient Disposition: Admitted As Inpatient Admit Provider: Lv Morrison Clinical Impression: Moderate bipolar I disorder with newton as current episode Condition: Stable Coding Level of Care Code ED Broommaking Supervisor for Kayley Dent
[2023-05-12 07:06] VITALS: BP 120/73; PULSE 84; RESP 18; O2SAT 98
[2023-05-12 07:11] LABS: Basophils # 0.1 10^3/uL (0.0-0.1); Basophils % 0.7 %; Eosinophils # 0.1 10^3/uL (0.0-0.8); Eosinophils % 1.3 %; Hematocrit 42.8 % (37-53); Lymphocytes # 2.8 10^3/uL (0.8-4.8); Lymphocytes % 34.5 %; Mean Corpuscular Hemoglobin 28.9 pg (27-33); Mean Corpuscular Volume 90.3 fl (82-101); Mean Platelet Volume 10.2 fL (7.4-10.4); Monocytes # 0.6 10^3/uL (0.2-0.9); Monocytes % 7.4 %; Neutrophils # 4.61 10^3/uL (1.8-7.7); Nucleated Red Blood Cells % 0 %; Platelet Count 217 10^3/cmm (157-399); Red Blood Count 4.74 10^6/uL (3.85-5.65); White Blood Count 8.24 10^3/uL (3.29-11.43)
--- NOTE | 2023-05-12 07:21 | PC.PHAR ---
pt states he is taking no medications-ext med history shows abilify 10mg daily rx filled 04/07/23 30d/s and prozac 20mg daily filled 04/07/23 30d/s
[2023-05-12] MEDS: LORazepam 2 mg/mL INJ 1 mL IM (07:27)
[2023-05-12] MEDS: haloperidol inj 5 mg/mL INJ 1 mL IM (07:27)
[2023-05-12 07:28] LABS: Alanine Aminotransferase 21 U/L (0-41); Albumin Level 4.4 g/dL (3.5-5.2); Alkaline Phosphatase 69 U/L (40-130); Anion Gap 13.7 (5-19); Aspartate Amino Transferase 16 U/L (0-40); Blood Urea Nitrogen 26 mg/dL (6-20); Calcium 9.2 mg/dL (8.5-10.5); Carbon Dioxide 28 mmol/L (22-29); Chloride 100 mmol/L (98-107); Globulin 2.4 g/dL (1.3-4.6); Glomerular Filtration Rate 84.9 mL/min (90-130); Glucose 216 mg/dL (65-115); Osmolality Calculated 297 mOsm/kg (285-295); Potassium 3.7 mmol/L (3.5-5.1); Sodium 138 mmol/L (136-145); Total Bilirubin 0.5 mg/dL (0.15-1.2); Total Protein 6.8 g/dL (6.6-8.7)
[2023-05-12 07:34] LABS: Acetaminophen < 5.0 ug/mL (10-30); Alcohol Level < 10 mg/dL (0-10); Salicylate < 0.3 mg/dL (3-10)
[2023-05-12 08:02] LABS: Amphetamines Screen Urine Negative (Negative); Barbiturates Screen Urine Negative (Negative); Benzodiazepines Screen Urine Negative (Negative); Cocaine Screen Urine Negative (Negative); Opiate Screen Urine Negative (Negative); PCP Screen Urine Negative (Negative); THC Screen Urine Positive (Negative)
[2023-05-12 09:32] VITALS: BP 115/66; PULSE 70; RESP 15; TEMP 36.9; O2SAT 100
--- NOTE | 2023-05-12 10:30 | PC.NURSE ---
PT FOUND BY POLICE HUMPING THE GROUND STATING THIS IS HOW THE EARTH WAS MADE. POLICE BROUGHT PT TO THE ER WHERE PT EXPLAINED THAT HIS GIRLFRIEND IS A PART OF THE ILLUMINATI. PT WAS POSITIVE FOR MARIJUANA. PT ARRIVED TO THE UNIT AND STATED MY KIDS MOM WONT LET ME IN BECAUSE SHE BELIEVES THE ILLUMINATI CANNOT SUPPORT GOD. PT WAS RELEASED FROM [facility] ABOUT 4-5 MONTHS AGO.
--- NOTE | 2023-05-12 12:58 | W.PM.NPUH&PS ---
Providers/Chief Complaint Admitting Physician: Lv Morrison MD Chief Complaint: 96 HPI NPU History of Present Illness Tad Varela Jr is a 32 year old male who presented to the emergency department with the following report: Chief Complaint: Psychiatric Symptoms Stated Complaint: 96 Time Seen by Provider: 05/12/23 06:53 Source: patient and police Mode of arrival: other (police) Limitations: no limitations History of Present Illness: 32-year-old male who is here with police with hallucinations paranoia he does have a history of bipolar he is telling me that he can jump through time and dimensions like Paulino and Tereza. He is cooperative. He denies being suicidal or homicidal but he is acutely psychotic. Denies any worsening improving factors. Associated symptoms: Reports delusions; Deny depression. He was admitted to the neuropsychiatric unit for definitive treatment of those issues. He is known to this engineering writer due to previous admissions. 1 in 2018 and 1 in 2020. He presented in February and with clear newton and returns with the same. We anticipated his arrival as staff members had seen him yesterday on his means of [place] jumping around bizarrely and gyrating to possible music. He began having agitation in the emergency department and received IM Ativan and Haldol and has been lying in bed and unarousable to this engineering writer.. It is unknown whether he has had any additional inpatient hospitalizations than the 3 he has had here in [place]. He has had significant legal difficulties with significant retirement time in the past few years. He has not had significant mental health follow-up. It is unclear when his last taking his Abilify regularly but has been seen to have improvement on that medication in the past. When he is able to be aroused we will discussed the risks, benefits and alternatives of restarting the Abilify and a plan to consider a 21-day hold if he is unable to have improvement while on the 96-hour hold. Given his inability to be historian and excerpt from his 2019 admission is included below for context and historical information. Per his 08/05/2019 [facility] inpatient psychiatric discharge summary: Date of Admission: Aug 03, 2019 at 19:42 Discharge Date:??Aug 05, 2019 Attending Physician: Lv Morrison MD Consulting Physician(s): Admission Diagnosis: Partner relational problems. Depressive disorder, unspecified.? Cannabis use disorder, unspecified.? Amphetamine disorder, unspecified. Other Discharge Diagnoses: Partner relational problems. Depressive disorder, unspecified.? Cannabis use disorder, unspecified.? Amphetamine disorder, unspecified. Rule out bereavement Brief History: History of Present Illness Date of Service: Aug 04, 2019 Chief Complaint: There is nothing wrong with me HPI: The patient presents today with his mother who is not his biological mother, but significant in his life, nonetheless.? They present reporting that he was hospitalized just a day ago secondary to a 96-hour hold that was placed upon him by significant other/mother of at least one child or more. He reports he had been in [place] police custody for 72 hours from Thursday to Thursday and they had put out this 96-hour hold which there are affidavits from the significant other, her mother, and her father. He denies any past psychiatric treatment. No past psychiatric medication. He reports that they have clear reasons to try to hold him or ?mess with him? including that they have papers against him that their daughter had been ?scandalous? and bringing guys into the house, but then acting like she was not doing it. Mom identifies that he has recordings and videotape that he took clandestinely and captured what he was saying that might sound odd if he did not have the proof that she identifies. He has been through some tough times recently they report. Two months ago, his sister was found murdered in a local building, murdered. He has nephews that are her children that he has had custody of and fathered to some degree. The 16 year old was recently shot multiple times. The 10 year old is struggling, as is one of the other children, and he is their support system. He reports that he does use a little ecstasy. He has messed around with marijuana regularly but denies having any overwhelming addiction issues. He started smoking cigarettes regularly when he was about 22. He started smoking marijuana when he was 14 and regularly when he was about 20. He started drinking alcohol at 19 but does not drink it very often. He denies any significant other drugs other than ecstasy. He reports that there are no issues right now other than a conflict with a significant other. He reports he was sent here in a more vindictive fashion. He denies any issues now, any need for medication, any desire for treatment. His mother was lobbying for him to consider therapy, reporting that she feels he needs therapy and not just trying to be tough dealing with the losses that he has. He got somewhat emotional as he described what he needed to be for his nephews and for his family and that he would not risk any of that for this girl. He is just wanting to get home. We discussed how the 96-hour process works and that it was critical for us to at least get another day to show that he is capable of maintaining his decorum and things of that nature. He understood and agreed to proceed as is documented in this note.? ? PSYCHIATRIC HISTORY: ? As above. This is his first psychiatric admission. ? SUBSTANCE ABUSE HISTORY: ? He smokes five to ten cigarettes a day. He uses alcohol occasionally. He smokes marijuana daily. He occasionally has had some what he calls ex pills but denies cocaine, methamphetamine, pain pills, heroin, never been to rehab, never had a DUI. ? FAMILY HISTORY: ? There are some mental health issues on his biological mother?s side. He does not know his father with any significance. He reports there is some addiction, but he does not think it is significant or prominent. He denies any significant suicide attempts or completions in his family.? ? DEVELOPMENTAL HISTORY: ? He reports he is the product of a normal . He learned to walk and talk and met his developmental milestones on time. He reports that he did not have speech therapy, learning support, emotional support or special education classes.? ? PSYCHOSOCIAL HISTORY: ? He reports that his mother and father were never really together, but they gave to him and his younger sister that share the same two parents. He reports his mother has two other children, a boy and a girl, that are his half siblings. He denies any knowledge of his father having any kids. He reports his childhood was pretty solid mostly because his maternal grandmother took over and was the mother figure in his life. He reports that therefore he has never had emotional abuse, physical abuse or sexual abuse. The highest grade he reached was the 10th grade. He did get his GED. He endorses being a heterosexual with his longest relationship being six years. He has never been . He has three children, ages 8, 4 and a 1 year old. He denies being in the . He endorses being Congregational. 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 He lives in a house with his sister and nephews. ? LEGAL HISTORY: ? He reports that he has been to retirement more times than can be counted, but he is turning himself around. He reports the longest time he had at one time in retirement was two years.? ? MEDICAL HISTORY: Allergies:? Coded Allergies:? NO KNOWN ALLERGIES (Unverified , 08/03/19) Active Meds: Hospital Course: Tad presented to the emergency room on a 96 hour hold secondary to statements made by his significant other and her parents.? Reports were of psychosis and homicidal ideation and threats.? On the unit and in the emergency room he was calm and did not demonstrate any of the symptoms that were described in the affidavits.? He was reasonable but desirous of discharge but accepting of the fact that there needed to be observation for due diligence.? He quickly acclimated to the individual, group and milieu therapies provided.? He was not interested in starting medication and none were provided.? He did not require any IM medications.? During hospitalization he had routine laboratory studies which were within normal limits except for a few outliers does be seen below.? Additionally had a general medical evaluation which was also within normal limits and revealed no acute processes.? At the time of discharge he denied lethality, he was absent psychosis, his mood revealed no abnormalities in his anxiety was under control.? He endorsed the plan to avoid his significant other and thereby avoid any trouble with the law given possible PFAs.? He accepted referrals to outpatient services to possibly deal with his bereavement or other issues.? He was evaluated in determined to have no imminent risk.? No concerns for thoughts to kill himself or others or harm himself or others was noted and so he was discharged. Meds NPU Home Medications Medication Instructions Recorded Confirmed Last Taken Type Unable to Assess 05/12/23 05/12/23 Unknown History Allergies Allergy/AdvReac Type Severity Reaction Status Date / Time No Known Allergies Allergy Verified 05/12/23 07:20 PFS NPU PFSH: Family History Mother Schizo-affective schizophrenia, chronic condition Bipolar 1 disorder with moderate newton Social History Smoking and tobacco status: current every day smoker cigarettes Packs smoked per day: 1 Substance/Drug Use: current Substance/Drug use frequency: daily Desire information about substance/drug rehabilitation?: No Counseling given: Yes Adopted: No Caregiver/support person: No Lives independently: Yes Marital status: Single Number of children: 3 (2 boys/1girl) Highest education level completed: High School Graduate service: No Current occupational status: unemployed Pets and animals: No Sexually active: Yes Do you think of yourself as: Straight/Heterosexual Current gender identity: Male Juana/Rastafarian: Unknown Special juana needs: No Agree to transfusion: Yes Financial difficulty paying for basics: Very Hard Additional social history: 2 Alf stays, out in 2013, just got out a second time. Mental Status Exam MSE Comments: This is a tall, well-nourished well-developed -Ukrainian male in hospital scrubs with limited grooming and no eye contact. No abnormal movements except for significant psychomotor retardation. Uncooperative with exam with exam in no acute distress. Speech was absent. Mood not described, affect sleeping. Thought process served. Thought content: Also not observed as patient was sleeping and not arousable. Vitals/I&O/Wt Last Vital Signs Temp 98.5 F 05/12/23 09:32 Pulse 70 05/12/23 09:32 Resp 15 05/12/23 09:32 BP 115/66 05/12/23 09:32 Pulse Ox 100 05/12/23 09:32 O2 Del Method Room Air 05/12/23 09:33 Weight last 48 hrs Weight 108.862 kg Data NPU 05/12/23 06:58 05/12/23 06:58 A&P Assessment and plan (1) Bipolar disorder, curr episode manic w/o psychotic features, moderate: (2) Cannabis abuse: (3) Newton: Plan This is a 32-year-old male with a long history of addiction and mental health difficulties who presented to the hospital on a 96-hour hold with newton. 1.? Restart Abilify 10 mg p.o. daily 2.? Continue every 15 minute checks for safety. 3.? Encourage individual, group and milieu therapies. 4.? Encourage sober living treatment after discharge at the highest level of care to which he is willing to commit.. Involuntary Hold Information 96 Hour Hold: 96 Hour Involuntary Admission: Yes 96 Hour Hold Ending Date: 05/18/23 96 Hour Hold Ending Time: 07:10 Attestations NPU Medical Necessity Statement*: Inpatient hospitalization is medically necessary and the clinically appropriate intervention at this time. We will monitor medications and make changes as indicated. He will be in the hospital for over 2 midnights. Likely length of stay 7-10 days. Coding Level of Care Code Acute Code for [facility] Fwd Diagnoses Bipolar disorder, curr episode manic w/o psychotic features, moderate F31.12 Cannabis abuse F12.10 Newton F30.9
[2023-05-12 14:00] VITALS: BP 110/64; PULSE 68; RESP 15; TEMP 36.6; O2SAT 100
[2023-05-12 20:34] VITALS: BP 118/58; PULSE 71; RESP 16; TEMP 36.8; O2SAT 99
[2023-05-13 06:00] VITALS: BP 140/70; PULSE 59; RESP 18; TEMP 36.8; O2SAT 96
[2023-05-13] MEDS: ARIPiprazole 10 mg Tablet PO (08:09)
--- NOTE | 2023-05-13 09:47 | W.PM.NPUPNS ---
Subjective NPU Subjective: Patient presented today reporting that he is doing okay. He was much more alert and interactive today yesterday when he was mostly lying in bed secondary to as needed medication. He was quite animated during the interview going from things like he could do this property underwriter's care so that will have to worry about getting my hairdresser in town to moving through the [facility] where his other baby's mother resides as he reports a focus of being in his childrens' lives. We discussed the ability of Abilify to be a every 2-month injection and he had just attributed his homelessness to being a product of his significant other being frustrated with him not taking his medication. He agreed that getting on the long-acting injectable especially the Abilify Asimtufii could get rid of his issue of nonadherence. We discussed the risks, benefits and alternatives of starting him on the Abilify Maintena while supplies of the Abilify Asimtufii and authorizations begin to clear at the beginning of 2023 and he understood and agreed to proceed as is documented in this note. Mental Status Exam MSE Comments: This is a tall, well-nourished well-developed -Australian male with hospital scrubs with adequate grooming and eye contact. Significant tattooing on exposed skin of arms and legs. No abnormal movements except for psychomotor agitation. Cooperative with exam in mild distress. Speech was increased rate and volume and somewhat pressured. Mood described as better than yesterday, affect congruent and hyperkinetic. Thought process linear and at times organized. Thought content: Patient denied suicidal or homicidal ideation, there are no delusions reported with some occasional hyperreligious and grandiose delusions noted, he denied any auditory or visual hallucinations. Attention and concentration were mostly intact and memory appeared somewhat reliable but none were formally tested. He is alert and oriented x3. Insight and judgment are limited and impulse control appeared limited versus impaired. Vitals/I&O/Wt Last Vital Signs Temp 98.2 F 05/13/23 06:00 Pulse 59 L 05/13/23 06:00 Resp 18 05/13/23 06:00 BP 140/70 05/13/23 06:00 Pulse Ox 96 05/13/23 06:00 O2 Del Method Room Air 05/12/23 09:33 Weight last 48 hrs Weight 108.862 kg Data NPU 05/12/23 06:58 05/12/23 06:58 A&P Assessment and plan (1) Bipolar disorder, curr episode manic w/o psychotic features, moderate: (2) Cannabis abuse: (3) Jennifer: Plan This is a 32-year-old male with a long history of addiction and mental health difficulties who presented to the hospital on a 96-hour hold with jennifer. 1.? Restarted Abilify 10 mg p.o. daily. Give Abilify Maintena injection 400 mg IM q. monthly until the Abilify Asimtufii is available. 2.? Continue every 15 minute checks for safety. 3.? Encourage individual, group and milieu therapies. 4.? Encourage sober living treatment after discharge at the highest level of care to which he is willing to commit.. Involuntary Hold Information 96 Hour Hold: 96 Hour Involuntary Admission: Yes 96 Hour Hold Ending Date: 05/18/23 96 Hour Hold Ending Time: 07:10 Attestations NPU Medical Necessity Statement*: Inpatient hospitalization is medically necessary and the clinically appropriate intervention at this time. We will monitor medications and make changes as indicated. Likely length of stay 6-9 days. Coding Level of Care Code Acute Code for [facility] Fwd Diagnoses Bipolar disorder, curr episode manic w/o psychotic features, moderate F31.12 Cannabis abuse F12.10 Jennifer F30.9
[2023-05-13] MEDS: nicotine 2 mg Gum BUCCAL (12:19)
[2023-05-13 13:22] VITALS: BP 118/69; PULSE 72; RESP 17; TEMP 37.1; O2SAT 99
[2023-05-13] MEDS: ARIPiprazole Maintena 400 MG IM (14:46)
--- NOTE | 2023-05-13 14:47 | PC.NURSE ---
MELVINA MAINTENA 400 MG GIVEN IM IN LEFT DELTOID ORDERED BY PHYSICIAN. TOLERATED INJECTION WELL, WILL CONT TO MONITOR INJECTION SITE FOR ANY REDNESS, SWELLING, OR IRRITATION LOT [id number] EXP JAN 2025
--- NOTE | 2023-05-13 20:14 | PC.NURSE ---
PT RESTING IN BED AROUSES TO VOICE. PT DENIES SI/HI AND AVH AT THIS TIME. PT BEGAN TELLING THIS RN A CONVOLUTED STORY STATING WERE ALL ALIENS, ROBOTS AND EVIL PEOPLE. BUT GODS THE ONE THAT TOLD ME THIS IS THE DIMENSION I AM SUPPOSE TO BE IN RIGHT NOW SO THERE IS NOTHING I CAN DO ABOUT IT BUT STAY WITH THE ROBOTS AND ALIENS. PT WAS OFFERED MEDICATIONS TO ASSIST WITH HIS ANXIETY AND TO HELP HIM SLEEP BUT PT DECLINED STATING 'I DON'T TAKE ANY OF THAT STUFF. SUPPORT WAS VOICED.
[2023-05-13 20:19] VITALS: BP 137/79; PULSE 68; RESP 18; TEMP 36.9; O2SAT 99
[2023-05-14] MEDS: trazodone 50 mg Tablet PO (01:39)
--- NOTE | 2023-05-14 01:41 | PC.NURSE ---
PT REQUEST SOMETHING TO HELP HIM REST. PT WAS GIVEN TRAZODONE 50 MG PO ORDERED FOR SLEEP.
--- NOTE | 2023-05-14 04:49 | PC.NURSE ---
PT CAME UP TO NURSES STATION APPROXIMATELY AT 300 AM STATING TRAZODONE 50 MG DID NOT HELP HIM SLEEP AT ALL. REQUESTED SOMETHNG ELSE SO I CAN SLEEP, PT WAS INFORMED THAT IT WAS TOO LATE TO REPEAT TRAZODONE BUT THIS RN COULD GIVE HIM SOMETHING FOR ANXIETY. PT STATED I LAYING IN BED CALM I DON'T NEED THAT. PT STATES I WILL JUST READ THE BIBLE AND SEE IF THAT HELPS ME GO TO SLEEP. SUPPORT VOICED. TRAZODONE INEFFECTIVE AT THIS TIME
[2023-05-14 06:00] VITALS: BP 103/69; PULSE 107; RESP 20; TEMP 36.7; O2SAT 95
[2023-05-14] MEDS: ARIPiprazole 10 mg Tablet PO (08:18)
[2023-05-14] MEDS: nicotine 2 mg Gum BUCCAL ×3 (09:59→20:37)
--- NOTE | 2023-05-14 11:02 | W.PM.NPUPNS ---
Subjective NPU Subjective: Patient presented today reporting that he is doing fine. He is lobbying for discharge before his 96 hour hold is up. He denies any side effects from initiating the Abilify Maintena. He continues to be grandiose asking if he needs to go to the therapy session anymore since he is smarter than everyone in the room combined. He says this with no motion or affect we will need to discuss the possibility of a 21-day hold being submitted tomorrow.. Mental Status Exam MSE Comments: This is a tall, well-nourished well-developed -Andorran male with hospital scrubs with adequate grooming and eye contact. Significant tattooing on exposed skin of arms and legs. No abnormal movements except for psychomotor agitation. Cooperative with exam in mild distress. Speech was increased rate and volume and somewhat pressured. Mood described as better than yesterday, affect congruent and hyperkinetic. Thought process linear and at times organized. Thought content: Patient denied suicidal or homicidal ideation, there are no delusions reported with some occasional hyperreligious and grandiose delusions noted, he denied any auditory or visual hallucinations. Attention and concentration were mostly intact and memory appeared somewhat reliable but none were formally tested. He is alert and oriented x3. Insight and judgment are limited and impulse control appeared limited versus impaired. Vitals/I&O/Wt Last Vital Signs Temp 98.1 F 05/14/23 06:00 Pulse 107 H 05/14/23 06:00 Resp 20 H 05/14/23 06:00 BP 103/69 05/14/23 06:00 Pulse Ox 95 05/14/23 06:00 O2 Del Method Room Air 05/14/23 06:00 Data NPU 05/12/23 06:58 05/12/23 06:58 A&P Assessment and plan (1) Bipolar disorder, curr episode manic w/o psychotic features, moderate: (2) Cannabis abuse: (3) Jennifer: Plan This is a 32-year-old male with a long history of addiction and mental health difficulties who presented to the hospital on a 96-hour hold with jennifer. 1.? Restarted Abilify 10 mg p.o. daily. Give Abilify Maintena injection 400 mg IM q. monthly until the Abilify Asimtufii is available. 2.? Continue every 15 minute checks for safety. 3.? Encourage individual, group and milieu therapies. 4.? Encourage sober living treatment after discharge at the highest level of care to which he is willing to commit.. Involuntary Hold Information 96 Hour Hold: 96 Hour Involuntary Admission: Yes 96 Hour Hold Ending Date: 05/18/23 96 Hour Hold Ending Time: 07:10 Attestations NPU Medical Necessity Statement*: Inpatient hospitalization is medically necessary and the clinically appropriate intervention at this time. We will monitor medications and make changes as indicated. Likely length of stay 5-8 days. Coding Level of Care Code Acute Code for g Fwd Diagnoses Bipolar disorder, curr episode manic w/o psychotic features, moderate F31.12 Cannabis abuse F12.10 Jennifer F30.9
[2023-05-14 14:00] VITALS: BP 117/75; PULSE 65; RESP 16; TEMP 36.9; O2SAT 100
[2023-05-14] MEDS: hyDROXYzine 25 mg Capsule 50 MG PO (16:13)
[2023-05-14 20:09] VITALS: BP 136/86; PULSE 149; RESP 20; TEMP 36.4; O2SAT 97
--- NOTE | 2023-05-14 20:20 | PC.NURSE ---
PT IN BED AROUSES TO VOICE. DENIES PAIN. DENIES SI/HI AND AVH AT THIS TIME. PT STATES HE HAD A GOOD DAY TODAY. PT WAS EVASIVE WITH ANSWERING QUESTIONS. PT REQUEST MEDICATIONS TO HELP HIM SLEEP TONIGHT. PT WAS ASSURED THAT WE WILL TRY THE TRAZODONE EARLY AND IF NEEDED WE CAN REPEAT THE DOSE IF IT IS INEFFECTIVE. PT STATED THATS A DEAL. SUPPORT VOICED.
--- NOTE | 2023-05-14 20:50 | PC.NURSE ---
DR. HOYOS NOTIFIED REGARDING TRAZODONE ORDER. PT WAS REQUESTING HE HAVE AN INCREASED DOSE AND DID NOT WANT THE REPEAT DOSE BECAUSE I KNOW IT WON'T WORK. NEW ORDERS RECEIVED FOR TRAZODONE 100 MG PO BEDTIME PRN INSOMNIA. PT EDUCATED ON MEDICATION. VERBALIZED UNDERSTANDING.
[2023-05-14] MEDS: trazodone 100 mg Tablet PO (21:39)
--- NOTE | 2023-05-14 22:59 | PC.NURSE ---
PT WAS GIVEN 100 MG OF TRAZODONE ORDERED FOR INSOMNIA. PT THEN LAID DOWN SHORTLY AFTER AND HAS BEEN RESTING WITH EASE. MEDICATION DEEMED EFFECTIVE.
--- NOTE | 2023-05-15 02:54 | PC.NURSE ---
PT UP TO NURSES STATION AT 300 AM STATING YOU NEED TO TELL THAT THAT TRAZODONE DON'T WORK, I NEED HIM TO PRESCRIBE ME THE REMERON, THAT I TOOK IN RETIREMENT. PT HAS SLEPT ABOUT 4-5 HOURS TONIGHT. PT REQUESTED TO WATCH TV UNTIL HE FEELS LIKE HE CAN SLEEP. PT WAS GIVEN THE REMOTE AND INFORMED HE CAN WATCH TV FOR THE NEXT 30 MINUTES OR SO THEN TRY TO GO TO BED. WILL PASS ON TO DAY SHIFT TO DISCUSS WITH DR. HOYOS IN THE AM./
[2023-05-15 06:00] VITALS: BP 146/93; PULSE 89; RESP 15; TEMP 37.1; O2SAT 100
[2023-05-15] MEDS: hyDROXYzine 25 mg Capsule 50 MG PO ×2 (08:18→19:05)
[2023-05-15] MEDS: nicotine 2 mg Gum BUCCAL (08:33)
--- NOTE | 2023-05-15 09:13 | PC.NURSE ---
Denies avh and si/hi. Patient stated he feels mentally great this morning. He does seem a bit delusional, making strange statements such as, you know how there are animals that can live and breathe in the ocean? Well they are innocent souls in the water from the flood in the Bible. He has also made several comments that we are currently in heaven because of what the Bible says in the Lord's Prayer.
[2023-05-15] MEDS: nicotine 21 mg Patch 1 PATCH TRANSDERMA (10:41)
[2023-05-15] MEDS: docusate sodium 100 mg Capsule PO (12:38)
[2023-05-15 14:00] VITALS: BP 127/79; PULSE 106; RESP 18; TEMP 37.3; O2SAT 98
--- NOTE | 2023-05-15 15:02 | W.PM.NPUPNS ---
Subjective NPU Subjective: Patient presented today continuing to be quite grandiose. He was very hyperreligious in his conversation quoting scriptures and suggesting that he had special abilities to see what was in the Bible talking about aliens and dragons etc. At 1 point he was quite irritated with this mortgage loan underwriter after he became aware that documents that I was signing were suggesting bipolar disorder as his condition and he believes he does not have bipolar or any condition and does not need medications. We discussed that Dr. Montenegro would be here tomorrow and that I filed for his 21-day hold and Dr. Montenegro would decide over the next 2 days whether he was going to discharge him on Thursday or whether he needed to move forward with the extended hold. Mental Status Exam MSE Comments: This is a tall, well-nourished well-developed -[place] male with hospital scrubs with adequate grooming and eye contact. Significant tattooing on exposed skin of arms and legs. No abnormal movements except for psychomotor agitation. Cooperative with exam in mild distress. Speech was increased rate and volume and somewhat pressured. Mood described as better than yesterday, affect congruent and hyperkinetic. Thought process linear and at times organized. Thought content: Patient denied suicidal or homicidal ideation, there are no delusions reported with some occasional hyperreligious and grandiose delusions noted, he denied any auditory or visual hallucinations. Attention and concentration were mostly intact and memory appeared somewhat reliable but none were formally tested. He is alert and oriented x3. Insight and judgment are limited and impulse control appeared limited versus impaired. Vitals/I&O/Wt Last Vital Signs Temp 99.2 F 05/15/23 14:00 Pulse 106 H 05/15/23 14:00 Resp 18 05/15/23 14:00 BP 127/79 05/15/23 14:00 Pulse Ox 98 05/15/23 14:00 O2 Del Method Room Air 05/15/23 14:00 Data NPU 05/12/23 06:58 05/12/23 06:58 A&P Assessment and plan (1) Bipolar disorder, curr episode manic w/o psychotic features, moderate: (2) Cannabis abuse: (3) Jennifer: Plan This is a 32-year-old male with a long history of addiction and mental health difficulties who presented to the hospital on a 96-hour hold with jennifer. 1.? Restarted Abilify 10 mg p.o. daily. Gave Abilify Maintena injection 400 mg IM q. monthly 05/13/2023 until the Abilify Asimtufii is available. Increase Abilify to 15 mg. 2.? Continue every 15 minute checks for safety. 3.? Encourage individual, group and milieu therapies. 4.? Encourage sober living treatment after discharge at the highest level of care to which he is willing to commit.. Involuntary Hold Information 96 Hour Hold: 96 Hour Involuntary Admission: Yes 96 Hour Hold Ending Date: 05/18/23 96 Hour Hold Ending Time: 07:10 Attestations NPU Medical Necessity Statement*: Inpatient hospitalization is medically necessary and the clinically appropriate intervention at this time. We will monitor medications and make changes as indicated. Likely length of stay 5-8 days. Coding Level of Care Code Acute Code for [facility] Fwd Diagnoses Bipolar disorder, curr episode manic w/o psychotic features, moderate F31.12 Cannabis abuse F12.10 Jennifer F30.9
--- NOTE | 2023-05-15 15:34 | PC.NURSE ---
Patient requesting to know why he is on the medication abilify and when this RN explained it was to treat his bipolar disorder he became angry and stated he was not bipolar and that he would have the doctor's license because he was misdiagnosed. Patient continued on a rant with a flight of ideas about how he is Jehovah in the fle, that his mother is bipolar but not him, how he could beat up all of the security guards here but he wouldn't, and how he isn't seeing his kids. Staff voiced support and attempted to calm patient, but he said, just go on and hit me with whatever meds, and began pacing the hallway.
[2023-05-15 19:50] VITALS: BP 112/78; PULSE 103; RESP 19; TEMP 36.7; O2SAT 99
[2023-05-15] MEDS: mirtazapine 15 mg Tablet PO (20:53)
[2023-05-15] MEDS: ARIPiprazole 10 mg Tablet 15 MG PO (20:53)
[2023-05-16 06:00] VITALS: BP 121/81; PULSE 115; RESP 18; TEMP 36.8; O2SAT 100
[2023-05-16] MEDS: nicotine 21 mg Patch 1 PATCH TRANSDERMA (07:46)
--- NOTE | 2023-05-16 08:57 | PC.NURSE ---
During morning assessment, patient stated that he is awesome . Patient denies SI, HI, AVH, depression, and anxiety. Patient stated that is is in optimal health. Patient talking frequently. Patient stuck on him not being able to have a family member come be with him on the unit as a support person.
[2023-05-16] MEDS: hyDROXYzine 25 mg Capsule 50 MG PO (12:25)
[2023-05-16 13:20] VITALS: BP 136/83; PULSE 124; RESP 18; TEMP 36.5; O2SAT 98
--- NOTE | 2023-05-16 19:21 | W.PM.NPUPNS ---
Subjective NPU Subjective: The patient is a 32-year-old -[place] male with a history of bipolar disorder currently with acute jennifer. He continued to appear grandiose on the unit. He had continued to report that he had special abilities and stated that he was a genius . He stated that he could solve any mathematical problem available in the universe. He had appeared upset that he had been placed on an extended hold despite him arriving here voluntarily. He had reported having tremendous difficulty with falling asleep. He had been redirectable but continued to appear quite talkative and verbose on the unit. He had reported having slept only a few hours but stated that he did not feel tired. Mental Status Exam MSE Comments: This is a tall, well-nourished well-developed -[place] male with hospital scrubs with adequate grooming and eye contact. Significant tattooing on exposed skin of arms and legs. No abnormal movements except for psychomotor agitation. Cooperative with exam in mild distress. Speech was increased rate and volume and somewhat pressured. Mood described as allright. His affect was expansive and hyperkinetic. Thought process was circumstantial. Thought content: Patient denied suicidal or homicidal ideation, there are no delusions reported with some occasional hyperreligious and grandiose delusions noted, he denied any auditory or visual hallucinations. Attention and concentration were mostly intact and memory appeared somewhat reliable but none were formally tested. He is alert and oriented x3. Insight and judgment are limited and impulse control appeared limited versus impaired. Vitals/I&O/Wt Last Vital Signs Temp 97.7 F 05/16/23 13:20 Pulse 124 H 05/16/23 13:20 Resp 18 05/16/23 13:20 BP 136/83 05/16/23 13:20 Pulse Ox 98 05/16/23 13:20 O2 Del Method Room Air 05/16/23 06:00 Data NPU 05/12/23 06:58 05/12/23 06:58 A&P Assessment and plan (1) Bipolar disorder, curr episode manic w/o psychotic features, moderate: (2) Cannabis abuse: (3) Jennifer: Plan This is a 32-year-old male with a long history of addiction and mental health difficulties who presented to the hospital on a 96-hour hold with jennifer. 1.? Increase abilify 20mg daily. Given Abilify Maintena injection 400 mg IM q. monthly 05/13/2023 until the Abilify Asimtufii is available. 2.? Continue every 15 minute checks for safety. 3.? Encourage individual, group and milieu therapies. 4.? Encourage sober living treatment after discharge at the highest level of care to which he is willing to commit.. Involuntary Hold Information 96 Hour Hold: 96 Hour Involuntary Admission: Yes 96 Hour Hold Ending Date: 05/18/23 96 Hour Hold Ending Time: 07:10 Attestations U Medical Necessity Statement*: Inpatient hospitalization is medically necessary and the clinically appropriate intervention at this time. We will monitor medications and make changes as indicated. Likely length of stay 5-8 days. Coding Level of Care Code Acute Code for g Fwd Diagnoses Bipolar disorder, curr episode manic w/o psychotic features, moderate F31.12 Cannabis abuse F12.10 Jennifer F30.9
[2023-05-16 20:00] VITALS: BP 129/81; PULSE 113; RESP 16; TEMP 36.9; O2SAT 96
[2023-05-16] MEDS: CLONazepam 1 mg Tablet PO (20:59)
[2023-05-17] MEDS: trazodone 100 mg Tablet PO ×2 (02:48→20:26)
--- NOTE | 2023-05-17 02:51 | PC.NURSE ---
Pt up to nurses station c/o not being able to sleep, even though pt has been asleep since approximately 2100. Pt states he has been restless, even though that has not been noted on 15 minutes checks to be fidgeting in the bed. Pt continues to be very manic and perseverating that he came her voluntarily, and noone explained the hold to him. Pt states that the physicians should be fired because they are not helping him and he wants to transfer to another facility in [facility] or [facility]. One on one care and redirection given with limited effect. PRN Trazodone administered per pt request. Pt in dayroom at this time speaking to NT about all the injustice against him. Monitoring continues.
[2023-05-17 06:00] VITALS: BP 99/66; PULSE 116; RESP 16; TEMP 36.9; O2SAT 99; BMI 21.4
[2023-05-17] MEDS: ARIPiprazole 10 mg Tablet 20 MG PO (07:58)
[2023-05-17] MEDS: nicotine 21 mg Patch 1 PATCH TRANSDERMA (10:04)
[2023-05-17] MEDS: hyDROXYzine 25 mg Capsule 50 MG PO ×2 (10:14→20:22)
--- NOTE | 2023-05-17 10:14 | PC.NURSE ---
Addendum entered by Suzy Bishop LPN 05/17/23 12:31: prn med not effective pt cont to be anxious, getting more agitated about being here on a hold, stated he signed in voluntarily here so why should he be stuck here with all of us bitches patient calling the doctors bitches and verbally aggressive with staff. security & house super notified via phone about patient behavior. Original Note: PRN VISTARIL 50 MG GIVEN PO PER PT C/O ANXIETY
--- NOTE | 2023-05-17 10:37 | PC.NURSE ---
received call from [facility] asking for Tad, she is not on the patitaylor's list and he adamantly does not want her contacted. when asked, he said she is my biological mother and is to me, Fuck that bitch!!
--- NOTE | 2023-05-17 13:07 | PC.NURSE ---
Patient with increased anxiety and agitation, yelling about how his meal tray was never correct and walked back to his room and came out with paperwork stating he was voluntary and that he wants a hearing with a jury nad a change of venue to [facility]. Patient screaming at staff that he wants to to have someone explain why he is still here. Patient called his sister and read the 96 hr hold paperwork to her. Patient was offered oral B52 and refused then he was told he would be getting the injection. Patient screamed that we could not give him that and called his sister again. Code [address] Montenegro was informed of the situation. Patient got off the phone with his sister and said I'm going to my room and will calm down. Patient was able to remain calm in his room at present
--- NOTE | 2023-05-17 13:37 | P.NPUPN_ITS ---
Subjective NPU Subjective: The patient is a 32-year-old -Barb[place] male with a history of bipolar disorder currently with acute jennifer. The patient remained intrusive and difficult to redirect on the unit. He had continued to report difficulties with sleep. He had continued to perseverate about how he had special abilities and that he was being kept here unlawful he. He had endorsed a desire to press charges and nelson everyone involved for him not being released despite being informed that he had been placed on extended hold with a hearing with the otr truck driver planned over the next week. The patient had required significant redirection on the unit and continued to appear irritable and often verbally abusive. Mental Status Exam MSE Comments: This is a tall, well-nourished well-developed -[place] male with hospital scrubs with adequate grooming and eye contact. Significant tattooing on exposed skin of arms and legs. No abnormal movements other than psychomotor agitation. He was somewhat noncooperative with examination. Speech was increased rate and volume with pressured speech noted. Mood described as fine. His affect was expansive and hyperkinetic. Thought process was circumstantial. Thought content: Patient denied suicidal or homicidal ideation, there are no delusions reported with some occasional hyperreligious and grandiose delusions noted, he denied any auditory or visual hallucinations. Attention and concentration were mostly intact and memory appeared somewhat reliable but none were formally tested. He is alert and oriented x3. Insight and judgment are limited and impulse control appeared limited versus impaired. Vitals/I&O/Wt Last Vital Signs Temp 98.4 F 05/17/23 06:00 Pulse 116 H 05/17/23 06:00 Resp 16 05/17/23 06:00 BP 99/66 05/17/23 06:00 Pulse Ox 99 05/17/23 06:00 O2 Del Method Room Air 05/17/23 06:00 Weight last 48 hrs Weight 88.451 kg Data NPU 05/12/23 06:58 05/12/23 06:58 A&P Assessment and plan (1) Bipolar disorder, curr episode manic w/o psychotic features, moderate: (2) Cannabis abuse: (3) Jennifer: Plan This is a 32-year-old male with a long history of addiction and mental health difficulties who presented to the hospital on a 96-hour hold with jennifer. 1.? Continue abilify 20mg daily though patient is refusing. Given Abilify Maintena injection 400 mg IM q. monthly 05/13/2023 until the Abilify Asimtufii is available. 2.? Continue every 15 minute checks for safety. 3.? Encourage individual, group and milieu therapies. 4.? Encourage sober living treatment after discharge at the highest level of care to which he is willing to commit.. 5. 21 day hold filed for extended stay. Involuntary Hold Information 96 Hour Hold: 96 Hour Involuntary Admission: Yes 96 Hour Hold Ending Date: 05/18/23 96 Hour Hold Ending Time: 07:10 Attestations NPU Medical Necessity Statement*: Inpatient hospitalization is medically necessary and the clinically appropriate intervention at this time. We will monitor medications and make changes as indicated. Likely length of stay 5-8 days. Coding Level of Care Code Acute Code for g Fwd Diagnoses Bipolar disorder, curr episode manic w/o psychotic features, moderate F31.12 Cannabis abuse F12.10 Jennifer F30.9
[2023-05-17 14:00] VITALS: BP 97/53; PULSE 107; RESP 18; TEMP 36.8; O2SAT 98
[2023-05-17 19:48] VITALS: BP 118/71; PULSE 88; RESP 16; TEMP 36.6; O2SAT 98
[2023-05-17] MEDS: CLONazepam 1 mg Tablet PO (20:26)
[2023-05-18] MEDS: LORazepam 2 mg Tablet PO (00:02)
[2023-05-18] MEDS: diphenhydrAMINE 50 mg Capsule PO (00:02)
[2023-05-18] MEDS: haloperidol 5 mg Tablet PO (00:02)
--- NOTE | 2023-05-18 00:05 | PC.NURSE ---
Patient Behavior Patient near nurses desk getting agitated. Stated we had white privileges.
[2023-05-18 06:00] VITALS: RESP 15
[2023-05-18] MEDS: ARIPiprazole 10 mg Tablet 20 MG PO (07:28)
[2023-05-18] MEDS: nicotine 21 mg Patch 1 PATCH TRANSDERMA (07:55)
[2023-05-18] MEDS: hyDROXYzine 25 mg Capsule 50 MG PO ×2 (07:57→14:31)
--- NOTE | 2023-05-18 07:57 | PC.NURSE ---
prn VISTARIL 50 MG GIVEN PO PER PT C/O STATED ANXIETY
[2023-05-18 14:00] VITALS: BP 122/81; PULSE 103; RESP 17; TEMP 36.7; O2SAT 100
--- NOTE | 2023-05-18 16:26 | W.PM.NPUPNS ---
Subjective NPU Subjective: The patient is a 32-year-old -[place] male with a history of bipolar disorder currently with acute jennifer. Patient continued to accuse staff and others of holding him here against his will and threatened legal consequences for all of us. He remained verbally abusive and required significant work to de-escalate as he had continually pushed his desire to leave here as he states that he had come here voluntarily. The patient had continued to report having special ricardo and believes and that he was gifted and was requesting that he be transferred to another facility and that the treatment team contact his p.o. as someone had contacted his combat information center officer and had inappropriately said it was him and had changed his address. Patient reports that he had legal consequences secondary to this. Mental Status Exam MSE Comments: This is a tall, well-nourished well-developed -[place] male with hospital scrubs with adequate grooming and eye contact. Significant tattooing on exposed skin of arms and legs. No abnormal movements other than psychomotor agitation. He was somewhat noncooperative with examination. Speech was increased rate and volume with pressured speech noted. Mood described as great. His affect was expansive and irritable. Thought process was circumstantial. Thought content: Patient denied suicidal or homicidal ideation,but continued ideas of infinite abilities. he denied any auditory or visual hallucinations. Attention and concentration were mostly intact and memory appeared somewhat reliable but none were formally tested. He is alert and oriented x3. Insight and judgment are limited and impulse control appeared limited versus impaired. Vitals/I&O/Wt Last Vital Signs Temp 98.1 F 05/18/23 14:00 Pulse 103 H 05/18/23 14:00 Resp 17 05/18/23 14:00 BP 122/81 05/18/23 14:00 Pulse Ox 100 05/18/23 14:00 O2 Del Method Room Air 05/17/23 19:48 Weight last 48 hrs Weight 88.451 kg Data NPU 05/12/23 06:58 05/12/23 06:58 A&P Assessment and plan (1) Jennifer: (2) Bipolar disorder, curr episode manic w/o psychotic features, moderate: (3) Moderate bipolar I disorder with jennifer as current episode: (4) Cannabis abuse: Plan This is a 32-year-old male with a long history of addiction and mental health difficulties who presented to the hospital on a 96-hour hold with jennifer. 1.? Continue abilify 20mg daily though patient is refusing oral dose. Given Abilify Maintena injection 400 mg IM q. monthly 05/13/2023 until the Abilify Asimtufii is available. 2.? Continue every 15 minute checks for safety. 3.? Encourage individual, group and milieu therapies. 4.? Encourage sober living treatment after discharge at the highest level of care to which he is willing to commit.. 5. 21 day hold filed for extended stay, court hearing tommorow. Involuntary Hold Information 96 Hour Hold: 96 Hour Involuntary Admission: Yes 96 Hour Hold Ending Date: 05/18/23 96 Hour Hold Ending Time: 07:10 Attestations NPU Medical Necessity Statement*: Inpatient hospitalization is medically necessary and the clinically appropriate intervention at this time. We will monitor medications and make changes as indicated. The patient's likely length of stay is 5-8 days. Coding Level of Care Code Acute Code for [facility] Fwd Diagnoses Jennifer F30.9 Bipolar disorder, curr episode manic w/o psychotic features, moderate F31.12 Moderate bipolar I disorder with jennifer as current episode F31.12 Cannabis abuse F12.10
[2023-05-18 19:56] VITALS: BP 149/73; PULSE 84; RESP 18; TEMP 36.9; O2SAT 100
[2023-05-18] MEDS: CLONazepam 1 mg Tablet 2 MG PO (21:26)
[2023-05-19] MEDS: hyDROXYzine 25 mg Capsule 50 MG PO ×3 (03:56→16:45)
[2023-05-19] MEDS: docusate sodium 100 mg Capsule PO (05:50)
--- NOTE | 2023-05-19 05:57 | PC.NURSE ---
Pt continues to perseverate on having 5 tubes of blood drawn, and that he did not have the hold paperwork read to him prior to admission. Pt states that maybe he was woozy and asleep when he stated that he could jump time dimensions like rachelle and morty. He requests nurses be present along with security footage to his hearing because he was being lied to and about during his admission. One on one pt care and redirection provided, minimally redirected. Monitoring continues.
[2023-05-19 06:00] VITALS: BP 131/82; PULSE 99; RESP 18; TEMP 36.6; O2SAT 93
[2023-05-19] MEDS: ARIPiprazole 10 mg Tablet 20 MG PO (08:03)
[2023-05-19] MEDS: nicotine 21 mg Patch 1 PATCH TRANSDERMA (08:03)
[2023-05-19] MEDS: acetaminophen 325 mg Tablet 650 MG PO (12:40)
[2023-05-19 13:12] VITALS: BP 125/76; PULSE 104; RESP 16; TEMP 37; O2SAT 98
--- NOTE | 2023-05-19 13:38 | PC.NURSE ---
PT OFF THE UNIT FOR [address] AT 1340
--- NOTE | 2023-05-19 16:19 | PC.NURSE ---
PT GOT BACK ON FLOOR FROM COURT AT 1440
--- NOTE | 2023-05-19 16:55 | P.NPUPN_ITS ---
Subjective NPU Subjective: The patient is a 32-year-old -[place]er male with a history of bipolar disorder currently with acute jennifer. Patient had continued to be accusatory stating that his rights have been violated. Patient was placed on a 21-day hold today after court hearing. Patient had reported that he simply needed to take his medications so that he could leave here. He had appeared less grandiose wi th continued ideas reported of being a God but stated that he was a benevolent to God. He had reported improved sleep while taking Klonopin 2 mg at night. Mental Status Exam MSE Comments: This is a tall, well-nourished well-developed -[place] male with hospital scrubs with adequate grooming and good eye contact. Significant tattooing on exposed skin of arms and legs. No abnormal movements other than hyperkinetic movements. He was somewhat noncooperative with examination. Speech was increased rate and volume with pressured speech noted. Mood described as great. His affect remained expansive. Thought process was tangential at times. Thought content: Patient denied suicidal or homicidal ideation,but continued ideas of infinite abilities and power referring to himself as God in a courtroom. He denied any auditory or visual hallucinations. Attention and concentration were mostly intact and memory appeared somewhat reliable but none were formally tested. He is alert and oriented x3. Insight and judgment are impaired and impulse control appeared impaired. Vitals/I&O/Wt Last Vital Signs Temp 98.6 F 05/19/23 13:12 Pulse 104 H 05/19/23 13:12 Resp 16 05/19/23 13:12 BP 125/76 05/19/23 13:12 Pulse Ox 98 05/19/23 13:12 O2 Del Method Room Air 05/19/23 06:00 Data NPU 05/12/23 06:58 05/12/23 06:58 A&P Assessment and plan (1) Jennifer: (2) Bipolar disorder, curr episode manic w/o psychotic features, moderate: (3) Moderate bipolar I disorder with jennifer as current episode: (4) Cannabis abuse: Plan This is a 32-year-old male with a long history of addiction and mental health difficulties who presented to the hospital on a 96-hour hold with jennifer. 1.? Continue abilify 20mg daily with haldol 5mg IM if patient refuses. Given Abilify Maintena injection 400 mg IM q. monthly 05/13/2023 until the Abilify Asimtufii is available. 2.? Continue every 15 minute checks for safety. 3.? Encourage individual, group and milieu therapies. 4.? Encourage sober living treatment after discharge at the highest level of care to which he is willing to commit.. 5. 21 day hold filed for extended stay, court hearing tommorow. Involuntary Hold Information 96 Hour Hold: 96 Hour Involuntary Admission: Yes 96 Hour Hold Ending Date: 05/18/23 96 Hour Hold Ending Time: 07:10 Attestations NPU Medical Necessity Statement*: Inpatient hospitalization is medically necessary and the clinically appropriate intervention at this time. We will monitor medications and make changes as indicated. The patient's likely length of stay is 5-8 days. Coding Level of Care Code Acute Code for g Fwd Diagnoses Jennifer F30.9 Bipolar disorder, curr episode manic w/o psychotic features, moderate F31.12 Moderate bipolar I disorder with jennifer as current episode F31.12 Cannabis abuse F12.10
[2023-05-19 19:58] VITALS: BP 121/78; PULSE 95; RESP 17; TEMP 36.9; O2SAT 100
[2023-05-19] MEDS: CLONazepam 1 mg Tablet 2 MG PO (20:57)
[2023-05-20] MEDS: trazodone 100 mg Tablet PO ×2 (01:55→21:21)
[2023-05-20 06:00] VITALS: BP 112/76; PULSE 95; RESP 20; TEMP 37.1; O2SAT 99
--- NOTE | 2023-05-20 06:25 | PC.NURSE ---
Pt is convinced that Dr. Morrison told him he would only take 13 doses of po abilify after taking the sustained injection and then he could be d/c'd home. However there is no documentation eluding to this statement to make it true. Pt con't to state that he is going to nelson the hospital and the physician d/t false allegations. Pt then goes on to state that he wants to know how much the physicians make because he is fully capable of reading all the books, and he could become a physician himself. Pt con't to perseverate on his hold, and how much longer he will be here. Pt is not focused on his rehabilitation at this time.
[2023-05-20] MEDS: ARIPiprazole 10 mg Tablet 20 MG PO (08:33)
[2023-05-20] MEDS: hyDROXYzine 25 mg Capsule 50 MG PO (11:49)
[2023-05-20] MEDS: nicotine 21 mg Patch 1 PATCH TRANSDERMA (11:49)
[2023-05-20 14:00] VITALS: BP 121/62; PULSE 72; RESP 16; TEMP 37.2; O2SAT 97
--- NOTE | 2023-05-20 16:31 | P.NPUPN_ITS ---
Subjective NPU Subjective: The patient is a 32-year-old -Prydeinig male with a history of bipolar disorder currently with acute jennifer. The patient has been sleeping better. He had continued to appear verbose and intrusive on the unit. He had continued to state that he did not need to be here and had been gas lit and diagnosed with jennifer. He had been willing to engage in a conversation regarding his diagnosis of bipolar disorder and was informed of the necessity to take medicines that had slowed down his thoughts. He had continued to make threats to nelson us and stated that if he were allowed to leave early he would choose not to nelson us. Patient was unable to describe or unwilling to describe the events that had led to his hospitalization here. He had reported his desire to return to his home although he had also given an option to the treatment team about living with a friend when stabilized. Mental Status Exam MSE Comments: This is a tall, well-nourished well-developed -Prydeinig male with hospital scrubs with adequate grooming and good eye contact. Significant tattooing on exposed skin of arms and legs. No abnormal movements other than hyperkinetic movements. He was somewhat cooperative with examination. He was difficult to interrupt with pressured speech and increased volume Mood described as great. His affect appeared less expansive. Thought process was tangential at times. Thought content: Patient denied suicidal or homicidal ideation. There is continued evidence of grandiosity. He denied any auditory or visual hallucinations. Attention and concentration were mostly intact and memory appeared somewhat reliable but none were formally tested. He is alert an d oriented x3. Insight and judgment are impaired and impulse control appeared impaired. Vitals/I&O/Wt Last Vital Signs Temp 98.9 F 05/20/23 14:00 Pulse 72 05/20/23 14:00 Resp 16 05/20/23 14:00 BP 121/62 05/20/23 14:00 Pulse Ox 97 05/20/23 14:00 O2 Del Method Room Air 05/20/23 14:00 Data NPU 05/12/23 06:58 05/12/23 06:58 A&P Assessment and plan (1) Jennifer: (2) Bipolar disorder, curr episode manic w/o psychotic features, moderate: (3) Moderate bipolar I disorder with jennifer as current episode: (4) Cannabis abuse: Plan This is a 32-year-old male with a long history of addiction and mental health difficulties who presented to the hospital on a 96-hour hold with jennifer. 1.? Continue abilify 20mg daily with haldol 5mg IM if patient refuses. Given Abilify Maintena injection 400 mg IM q. monthly 05/13/2023 until the Abilify Asimtufii is available. 2.? Continue every 15 minute checks for safety. 3.? Encourage individual, group and milieu therapies. 4.? Encourage sober living treatment after discharge at the highest level of care to which he is willing to commit.. 5. 21 day hold filed for extended stay, court hearing tommorow. Involuntary Hold Information 96 Hour Hold: 96 Hour Involuntary Admission: Yes 96 Hour Hold Ending Date: 05/18/23 96 Hour Hold Ending Time: 07:10 Attestations NPU Medical Necessity Statement*: Inpatient hospitalization is medically necessary and the clinically appropriate intervention at this time. We will monitor medications and make changes as indicated. The patient's likely length of stay is 3-5 days. Coding Level of Care Code Acute Code for Chg Fwd Diagnoses Jennifer F30.9 Bipolar disorder, curr episode manic w/o psychotic features, moderate F31.12 Moderate bipolar I disorder with jennifer as current episode F31.12 Cannabis abuse F12.10
[2023-05-20] MEDS: CLONazepam 1 mg Tablet 2 MG PO (19:55)
[2023-05-20 20:30] VITALS: BP 124/69; PULSE 94; RESP 18; TEMP 37.2; O2SAT 98
[2023-05-21 06:00] VITALS: BP 106/68; PULSE 80; RESP 16; TEMP 37.1; O2SAT 100
[2023-05-21] MEDS: hyDROXYzine 25 mg Capsule 50 MG PO ×2 (06:42→13:17)
[2023-05-21] MEDS: docusate sodium 100 mg Capsule PO (06:52)
[2023-05-21] MEDS: ARIPiprazole 10 mg Tablet 20 MG PO (08:22)
[2023-05-21] MEDS: nicotine 21 mg Patch 1 PATCH TRANSDERMA (11:02)
--- NOTE | 2023-05-21 12:27 | W.PM.NPUDCS ---
Diagnoses at Discharge Discharge Diagnosis (1) Newton: Status: Resolved (2) Bipolar disorder, curr episode manic w/o psychotic features, moderate: Status: Acute (3) Moderate bipolar I disorder with newton as current episode: Status: Resolved (4) Cannabis abuse: Status: Resolved Reason for Visit Reason for Visit: 96 Brief History: History of Present Illness Tad Varela Jr is a 32 year old male who presented to the emergency department with the following report: Chief Complaint: Psychiatric Symptoms Stated Complaint: 96 Time Seen by Provider: 05/12/23 06:53 Source: patient and police Mode of arrival: other (police) Limitations: no limitations History of Present Illness:?? 32-year-old male who is here with police with hallucinations paranoia he does have a history of bipolar he is telling me that he can jump through time and dimensions like Paulino and Tereza.? He is cooperative.? He denies being suicidal or homicidal but he is acutely psychotic.? Denies any worsening improving factors. ? Associated symptoms: Reports delusions; Deny depression. He was admitted to the neuropsychiatric unit for definitive treatment of those issues.? He is known to this technical writer and editor due to previous admissions. 1 in 2018 and 1 in 2020.? He presented in February and with clear newton and returns with the same.? We anticipated his arrival as staff members had seen him yesterday on his means of [place] jumping around bizarrely and gyrating to possible music.? He began having agitation in the emergency department and received IM Ativan and Haldol and has been lying in bed and unarousable to this technical writer and editor..? It is unknown whether he has had any additional inpatient hospitalizations than the 3 he has had here in [place].? He has had significant legal difficulties with significant detention time in the past few years.? He has not had significant mental health follow-up.? It is unclear when his last taking his Abilify regularly but has been seen to have improvement on that medication in the past.? When he is able to be aroused we will discussed the risks, benefits and alternatives of restarting the Abilify and a plan to consider a 21-day hold if he is unable to have improvement while on the 96-hour hold.? Given his inability to be historian and excerpt from his 2019 admission is included below for context and historical information. Per his 08/05/2019 [facility] inpatient psychiatric discharge summary: Date of Admission: Aug 03, 2019 at 19:42 Discharge Date:??Aug 05, 2019 Attending Physician: Lv Morrison MD Consulting Physician(s): Admission Diagnosis: Partner relational problems. Depressive disorder, unspecified.? Cannabis use disorder, unspecified.? Amphetamine disorder, unspecified. Other Discharge Diagnoses: Partner relational problems. Depressive disorder, unspecified.? Cannabis use disorder, unspecified.? Amphetamine disorder, unspecified. Rule out bereavement Brief History: History of Present Illness Date of Service: Aug 04, 2019 Chief Complaint: There is nothing wrong with me HPI: The patient presents today with his mother who is not his biological mother, but significant in his life, nonetheless.? They present reporting that he was hospitalized just a day ago secondary to a 96-hour hold that was placed upon him by significant other/mother of at least one child or more. He reports he had been in [place] police custody for 72 hours from Thursday to Thursday and they had put out this 96-hour hold which there are affidavits from the significant other, her mother, and her father. He denies any past psychiatric treatment. No past psychiatric medication. He reports that they have clear reasons to try to hold him or ?mess with him? including that they have papers against him that their daughter had been ?scandalous? and bringing guys into the house, but then acting like she was not doing it. Mom identifies that he has recordings and videotape that he took clandestinely and captured what he was saying that might sound odd if he did not have the proof that she identifies. He has been through some tough times recently they report. Two months ago, his sister was found murdered in a local building, murdered. He has nephews that are her children that he has had custody of and fathered to some degree. The 16 year old was recently shot multiple times. The 10 year old is struggling, as is one of the other children, and he is their support system. He reports that he does use a little ecstasy. He has messed around with marijuana regularly but denies having any overwhelming addiction issues. He started smoking cigarettes regularly when he was about 22. He started smoking marijuana when he was 14 and regularly when he was about 20. He started drinking alcohol at 19 but does not drink it very often. He denies any significant other drugs other than ecstasy. He reports that there are no issues right now other than a conflict with a significant other. He reports he was sent here in a more vindictive fashion. He denies any issues now, any need for medication, any desire for treatment. His mother was lobbying for him to consider therapy, reporting that she feels he needs therapy and not just trying to be tough dealing with the losses that he has. He got somewhat emotional as he described what he needed to be for his nephews and for his family and that he would not risk any of that for this girl. He is just wanting to get home. We discussed how the 96-hour process works and that it was critical for us to at least get another day to show that he is capable of maintaining his decorum and things of that nature. He understood and agreed to proceed as is documented in this note.? ? PSYCHIATRIC HISTORY: ? As above. This is his first psychiatric admission. ? SUBSTANCE ABUSE HISTORY: ? He smokes five to ten cigarettes a day. He uses alcohol occasionally. He smokes marijuana daily. He occasionally has had some what he calls ex pills but denies cocaine, methamphetamine, pain pills, heroin, never been to rehab, never had a DUI. ? FAMILY HISTORY: ? There are some mental health issues on his biological mother?s side. He does not know his father with any significance. He reports there is some addiction, but he does not think it is significant or prominent. He denies any significant suicide attempts or completions in his family.? ? DEVELOPMENTAL HISTORY: ? He reports he is the product of a normal . He learned to walk and talk and met his developmental milestones on time. He reports that he did not have speech therapy, learning support, emotional support or special education classes.? ? PSYCHOSOCIAL HISTORY: ? He reports that his mother and father were never really together, but they gave to him and his younger sister that share the same two parents. He reports his mother has two other children, a boy and a girl, that are his half siblings. He denies any knowledge of his father having any kids. He reports his childhood was pretty solid mostly because his maternal grandmother took over and was the mother figure in his life. He reports that therefore he has never had emotional abuse, physical abuse or sexual abuse. The highest grade he reached was the 10th grade. He did get his GED. He endorses being a heterosexual with his longest relationship being six years. He has never been . He has three children, ages 8, 4 and a 1 year old. He denies being in the . He endorses being Baptism. 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 He lives in a house with his sister and nephews. ? LEGAL HISTORY: ? He reports that he has been to detention more times than can be counted, but he is turning himself around. He reports the longest time he had at one time in detention was two years.? ? MEDICAL HISTORY: Allergies:? Coded Allergies:? NO KNOWN ALLERGIES (Unverified , 08/03/19) Active Meds: Hospital Course: Tad presented to the emergency room on a 96 hour hold secondary to statements made by his significant other and her parents.? Reports were of psychosis and homicidal ideation and threats.? On the unit and in the emergency room he was calm and did not demonstrate any of the symptoms that were described in the affidavits.? He was reasonable but desirous of discharge but accepting of the fact that there needed to be observation for due diligence.? He quickly acclimated to the individual, group and milieu therapies provided.? He was not interested in starting medication and none were provided.? He did not require any IM medications.? During hospitalization he had routine laboratory studies which were within normal limits except for a few outliers does be seen below.? Additionally had a general medical evaluation which was also within normal limits and revealed no acute processes.? At the time of discharge he denied lethality, he was absent psychosis, his mood revealed no abnormalities in his anxiety was under control.? He endorsed the plan to avoid his significant other and thereby avoid any trouble with the law given possible PFAs.? He accepted referrals to outpatient services to possibly deal with his bereavement or other issues.? He was evaluated in determined to have no imminent risk.? No concerns for thoughts to kill himself or others or harm himself or others was noted and so he was discharged. Hospital Course Hospital Course During the hospitalization, the patient had routine laboratory studies which were within normal limits except for a few outliers.? Additionally, there was a general medical evaluation which was also within normal limits and revealed no new acute processes.? At the time of discharge, lethality was denied and psychosis was resolving.? Mood and anxiety were well managed.? The patient endorsed a plan to avoid all drugs of abuse and follow up with the aftercare recommendations of the treatment team.? The patient was evaluated and deemed to be absent credible lethality and had achieved the maximum benefit from an inpatient hospitalization, and so was discharged.? Involuntary Hold Information 96 Hour Hold: 96 Hour Involuntary Admission: Yes 96 Hour Hold Ending Date: 05/18/23 96 Hour Hold Ending Time: 07:10 Mental Status Exam MSE Comments: This is a tall, well-nourished well-developed -Armenian male with hospital scrubs with adequate grooming and good eye contact. Significant tattooing on exposed skin of arms and legs. No abnormal involuntary motor movements were appreciated. He was cooperative with examination. His speech was normal in regards to rate rhythm and prosody. Mood described as great. His affect appeared euthymic. Thought process was tangential at times. Thought content: Patient denied suicidal or homicidal ideation. He denied any auditory or visual hallucinations. Attention and concentration were mostly intact and memory appeared somewhat reliable but none were formally tested. He is alert and oriented x3. Insight and judgment are improved and impulse control appeared fair on discharge. Discharge Data Studies Completed and Pending: Laboratory Results WBC 8.24 10^3/uL (3.2 9-11.43) 05/12/23 06:58 RBC 4.74 10^6/uL (3.8 5-5.65) 05/12/23 06:58 Hgb 13.70 g/dL (11.27 -16.99) 05/12/23 06:58 Hct 42.8 % (37-53) 05/12/23 06:58 MCV 90.3 fl (82-101) 05/12/23 06:58 MCH 28.9 pg (27-33) 05/12/23 06:58 MCHC 32.0 g/dL (30-55) 05/12/23 06:58 RDW 13.0 % (12.1-15.1 ) 05/12/23 06:58 Plt Count 217 10^3/cmm (157 -399) 05/12/23 06:58 MPV 10.2 fL (7.4-10.4 ) 05/12/23 06:58 Neut % (Auto) 56.0 % 05/12/23 06:58 Lymph % (Auto) 34.5 % 05/12/23 06:58 Long % (Auto) 7.4 % 05/12/23 06:58 Eos % (Auto) 1.3 % 05/12/23 06:58 Baso % (Auto) 0.7 % 05/12/23 06:58 Neut # (Auto) 4.61 10^3/uL (1.8 -7.7) 05/12/23 06:58 Lymph # (Auto) 2.8 10^3/uL (0.8- 4.8) 05/12/23 06:58 Long # (Auto) 0.6 10^3/uL (0.2- 0.9) 05/12/23 06:58 Eos # (Auto) 0.1 10^3/uL (0.0- 0.8) 05/12/23 06:58 Baso # (Auto) 0.1 10^3/uL (0.0- 0.1) 05/12/23 06:58 Nucleated RBC % (a uto) 0 % 05/12/23 06:58 Nucleated RBCs # 0.0 /100WBC 05/12/23 06:58 Sodium 138 mmol/L (136-1 45) 05/12/23 06:58 Potassium 3.7 mmol/L (3.5-5 .1) 05/12/23 06:58 Chloride 100 mmol/L (98-10 7) 05/12/23 06:58 Carbon Dioxide 28 mmol/L (22-29) 05/12/23 06:58 Anion Gap 13.7 (5-19) 05/12/23 06:58 BUN 26 mg/dL (6-20) H 05/12/23 06:58 Creatinine 1.2 mg/dL (0.7-1. 2) 05/12/23 06:58 GFR Calculation 84.9 mL/min (90-1 30) L 05/12/23 06:58 Glucose 216 mg/dL (65-115 ) H 05/12/23 06:58 Calculated Osmolal ity 297 mOsm/kg (285- 295) H 05/12/23 06:58 Calcium 9.2 mg/dL (8.5-10 .5) 05/12/23 06:58 Total Bilirubin 0.5 mg/dL (0.15-1 .2) 05/12/23 06:58 AST 16 U/L (0-40) 05/12/23 06:58 ALT 21 U/L (0-41) 05/12/23 06:58 Alkaline Phosphata se 69 U/L (40-130) 05/12/23 06:58 Total Protein 6.8 g/dL (6.6-8.7 ) 05/12/23 06:58 Albumin 4.4 g/dL (3.5-5.2 ) 05/12/23 06:58 Globulin 2.4 g/dL (1.3-4.6 ) 05/12/23 06:58 Salicylates < 0.3 mg/dL (3-10 ) L 05/12/23 06:58 Urine Opiates Scre en Negative ng/mL (N egative) 05/12/23 07:25 Acetaminophen < 5.0 ug/mL (10-3 0) L 05/12/23 06:58 Ur Barbiturates Sc reen Negative ng/mL (N egative) 05/12/23 07:25 Ur Phencyclidine S crn Negative ng/mL (N egative) 05/12/23 07:25 Ur Amphetamines Sc reen Negative ng/mL (N egative) 05/12/23 07:25 U Benzodiazepines Scrn Negative ng/mL (N egative) 05/12/23 07:25 Urine Cocaine Scre en Negative ng/mL (N egative) 05/12/23 07:25 U Marijuana (THC) Screen Positive ng/mL (N egative) H 05/12/23 07:25 Ethyl Alcohol < 10 mg/dL (0-10) 05/12/23 06:58 Vitals: Last Vital Signs Temp 98.8 F 05/21/23 06:00 Pulse 80 05/21/23 06:00 Resp 16 05/21/23 06:00 BP 106/68 05/21/23 06:00 Pulse Ox 100 05/21/23 06:00 O2 Del Method Room Air 05/21/23 06:00 Discharge Plan Discharge Patient Disposition: Home Condition: Stable Prescriptions: New aripiprazole 10 mg Tablet 20 mg PO DAILY 30 Days Qty: 60 1RF clonazepam 1 mg Tablet 2 mg PO BEDTIME 15 Days Qty: 30 2RF Discontinued fluoxetine 20 mg capsule 20 mg PO DAILY aripiprazole 10 mg tablet 10 mg PO DAILY Discharge Orders: Discharge Order (Routine); Ordered 05/21/23 Ordered By: Db Monten[place]ro Referrals: [facility] [Outside] - 05/25/23 10:15 am ([facility] appointment for 05/25/23 @ 10:15 am.) Discharge Diet: Usual diet Discharge Activity: Resume usual activity Patient Instructions: Clonazepam (By mouth) (Klonopin), Aripiprazole (By mouth), Mood Disorders (DC), Bipolar Disorder (DC), Opioid Safety Discharge Attestations NPU Time Spent in Discharge Care*: less than 30 min Specific Discharge Activities: Specific discharge activities: educating patient and educating and/or supporting family/caregiver Coding Level of Care Code Acute Chg FW DC note Diagnoses Newton F30.9 Bipolar disorder, curr episode manic w/o psychotic features, moderate F31.12 Moderate bipolar I disorder with newton as current episode F31.12 Cannabis abuse F12.10
[2023-05-21 12:39] VITALS: BP 106/68; PULSE 80; RESP 16; TEMP 37.1; O2SAT 100
== END 2023-05-21 14:05 | disposition home or self-care (01) | DRG 885 ==
LOC: ER 07:13 → NP 08:17
PROVIDERS: Admitting Provider Psychiatry & Neurology Psychiatry; Emergency Provider Emergency Medicine; Visit Provider Psychiatry & Neurology Psychiatry
DX: F31.12 Bipolar disorder, current episode manic without psychotic features, moderate (principal); F17.210 Nicotine dependence, cigarettes, uncomplicated; Z59.00 Homelessness unspecified; Z91.148 Patient's other noncompliance with medication regimen for other reason; F12.90 Cannabis use, unspecified, uncomplicated
CPT/HCPCS: 36415; 80053; 80306; 80307; 85025; 96372; 97150; 97165; 99285; J1630; J2060; Q0163